=== PATIENT | female | born 1955 | race Caucasian/White ===

== ENCOUNTER 2022-11-14 15:17 | Outpatient (REF) | payer MEDICARE, OTHER, SELFPAY ==
[2022-11-14 16:06] LABS: SARS-CoV-2 Ag NEGATIVE (NEGATIVE)
[2022-11-15 11:42] LABS: SARS-CoV-2 NAA NOT DETECTED (NOT DETECTE)
== END 2022-11-14 15:18 | disposition home or self-care (01) ==
LOC: LAB 15:17
PROVIDERS: PCP Family Medicine; Visit Provider Internal Medicine
DX: Z20.822 Contact with and (suspected) exposure to COVID-19 (principal)
CPT/HCPCS: 87635; 87811; U0003

== ENCOUNTER 2023-04-30 10:36 | Outpatient (RCR) | payer MEDICARE, SELFPAY | END 2023-06-26 16:43 | disposition home or self-care (01) | LOC: PT 10:36 | PROVIDERS: PCP Family Medicine; Visit Provider Family Medicine | DX: R26.89 Other abnormalities of gait and mobility (principal); R26.81 Unsteadiness on feet | CPT/HCPCS: 97110; 97112; 97140; 97161; 97530 ==

== ENCOUNTER 2023-08-06 10:50 | Outpatient (OUT) | payer MEDICARE, SELFPAY ==
[2023-08-06 11:57] LABS: Basophils Percent Auto 0.7 % (0.2-2.0); Eosinophils Absolute Auto 0.1 10^3/uL (0.0-0.7); Eosinophils Percent Auto 1.8 % (0.9-7.0); Hematocrit 44.8 % (36.0-48.0); Hemoglobin 14.3 g/dL (12.0-16.0); Immature Granulocytes Abs Auto 0.01 10^3/uL (0.00-0.03); Immature Granulocytes Pct Auto 0.2 % (0.0-0.5); Lymphocytes Absolute Auto 1.6 10^3/uL (1.2-3.8); Lymphocytes Percent Auto 29.4 % (20.5-60.0); Mean Corpuscular HGB Conc 31.9 g/dL (29.9-35.2); Mean Corpuscular Hemoglobin 29.7 pg (26.7-34.0); Mean Corpuscular Volume 92.9 fL (81.0-99.0); Monocytes Absolute Auto 0.4 10^3/uL (0.3-0.8); Monocytes Percent Auto 7.4 % (1.7-12.0); Neutrophils Absolute Auto 3.3 10^3/uL (1.4-6.5); Neutrophils Percent Auto 60.5 % (43.0-75.0); Platelet Count 200 10^3/uL (150-450); Red Blood Count 4.82 10^6/uL (4.20-5.40); Red Cell Distribution Width 12.7 % (11.0-15.0); White Blood Count 5.4 10^3/uL (4.0-11.0)
[2023-08-06 14:00] LABS: BUN Creatinine Ratio 15.8; Calcium 9.2 mg/dL (8.5-10.1); Carbon Dioxide 28.5 mmol/L (21.0-32.0); Chloride 104 mmol/L (98-107); Estimated GFR (African America >60 (>=60); Estimated GFR (Non-African Ame 59 (>=60); Glucose 99 mg/dL (74-106); Magnesium 1.8 mg/dL (1.8-2.4); Potassium 4.5 mmol/L (3.5-5.1); Sodium 141 mmol/L (136-145); Thyroid Stimulating Hormone 5.713 uIU/mL (0.358-3.740)
== END 2023-08-06 10:51 | disposition home or self-care (01) ==
LOC: LAB 10:54
PROVIDERS: PCP Family Medicine; Visit Provider Family Medicine
DX: E03.9 Hypothyroidism, unspecified (principal); M79.10 Myalgia, unspecified site; R53.83 Other fatigue
CPT/HCPCS: 36415; 80048; 82728; 83735; 84443; 85025

== ENCOUNTER 2023-10-07 08:27 | Outpatient (OUT) | payer MEDICARE, SELFPAY ==
--- OUTSIDE RECORDS SUMMARY | 2023-10-07 08:40 | XMS_ITS | CCD ---
Author Organization [facility] Care Team Providers Care Mammography Technician Name Role Phone REQUEST, DR NONE LISTED Consulting Unavaila ble REQUEST, NONE LISTED Admitting Unavaila ble REQUEST, NONE LISTED Attending Unavaila ble REQUEST, NONE LISTED Consulting Unavaila ble REQUEST, NONE LISTED Admitting Unavaila ble REQUEST, DR TURPIN LISTED Attending Unavaila ble CASAS, DR JULIA Earl Primary Care Unavailable BALL, DR BOSWELL Attending Unavailable BALL, DR BOSWELL Consulting Unavailable BALL, DR BOSWELL Admitting Unavailable LUBNA, DR DEBORAH Jimenez Consulting Unavailable CASAS, DR JULIA Earl Attending Unavailable CASAS, DR JULIA Earl Consulting Unavailable CASAS, DR JULIA Earl Admitting Unavailable Casas, Julia Reddy ELISEO SANCHEZ Attending Unavailable Medications Current Medications Medication Drug Class(es) Dates Sig (Normalized) Sig (Original) azithromycin 250 mg oral tablet (1 source) Macrolide Antimicrobial Start: 4 Azithromycin 250 MG as directed Orally 2 tabs po today, then 1 tab daily x 4 more days for 5 Mar, Active methylPREDNISolone 4 mg oral tablet (1 source) Corticosteroid Start: 4 methylPREDNISolone 4 MG as directed Orally for 6 days Mar, Active Completed/Discontinued Medications Medication Drug Class(es) Dates Sig (Normalized) Sig (Original) doxycycline hyclate 100 mg oral capsule (1 source) Tetracycline-cla ss Drug Start: 04-30-2023 End: 08-06-2023 take 100 mg by mouth twice daily Doxycycline Hyclate Discontinued 100 MG PO Twice daily April 30, 2023 1:00am August 06, 2023 10:08am Problems Active Problems Problem Classification Problem Date Documented Date Episodic/Chronic Chronic obstructive pulmonary disease and bronchiectasis (1 source) Bronchitis, not specified as acute or chronic Episodic Genitourinary symptoms and ill-defined conditions (6 sources) Unspecified symptoms and signs involving the genitourinary system; Translations: [UNS SYMPTOMS SIGNS INVLV SYSTEM] Onset: 08-19-2020 Episodic Immunizations and screening for infectious disease (2 sources) Vaccination given; Translations: [Encounter for immunization] Episodic Malaise and fatigue (2 sources) Fatigue; Translations: [Other fatigue] 08-06-2023 Episodic Other connective tissue disease (1 source) Muscle pain; Translations: [Myalgia, unspecified site] 08-06-2023 Episodic Other connective tissue disease (1 source) Myalgia, unspecified site; Translations: [Myalgia and myositis, unspecified] 08-06-2023 Episodic Other injuries and conditions due to external causes (2 sources) Traumatic AND/OR non-traumatic injury; Translations: [Other injury of unspecified body region, initial encounter] Episodic Other nervous system disorders (1 source) Impairment of balance; Translations: [Other abnormalities of gait and mobility] Episodic Other nervous system disorders (1 source) Other abnormalities of gait and mobility Episodic Other nutritional; endocrine; and metabolic disorders (2 sources) Body mass index 40+ - severely obese; Translations: [Body mass index (BMI) 40.0-44.9, adult] Chronic Other nutritional; endocrine; and metabolic disorders (2 sources) Morbid obesity; Translations: [Morbid (severe) obesity due to excess calories] Onset: 06-12-2016 Chronic Superficial injury; contusion (6 sources) Contusion of right knee, initial encounter; Translations: [Contusion of right knee] Onset: 12-26-2020 Episodic Systemic lupus erythematosus and connective tissue disorders (2 sources) Autoimmune disease; Translations: [Autoimmune disease, not elsewhere classified] Onset: 03-05-2014 Chronic Thyroid disorders (6 sources) Hypothyroidism; Translations: [Hypothyroidism, unspecified] Onset: 03-05-2014 08-06-2023 Chronic Past or Other Problems Problem Classification Problem Date Documented Da te Episodic/Chronic Conditions associated with dizziness or vertigo (4 sources) Benign paroxysmal positional vertigo; Translations: [Benign paroxysmal positional vertigo] Onset: 02-15-2015 Episodic Other connective tissue disease (2 sources) Nontraumatic rupture of rotator cuff of left shoulder; Translations: [Unspecified rotator cuff tear or rupture of left shoulder, not specified as traumatic] Onset: 06-12-2016 Episodic Other non-traumatic joint disorders (2 sources) Shoulder joint pain; Translations: [Pain in left shoulder] Onset: 06-12-2016 Episodic Other upper respiratory infections (4 sources) Acute sinusitis; Translations: [Acute sinusitis, unspecified] Onset: 12-27-2014 Episodic Results Test Name Value Interpretation Reference Range Facil ity CULTURE URINEon 08-19-2020 CULTURE URINE Culture Observations: HEAVY GROWTH OF MIXED GENITAL DENISHA. NO POTENTIAL PATHOGENS SEEN. Normal [facility] Comment on above: Performed By: #### U RCX #### [facility] [address] [address] Hernesto Babb Vital Signs Date Time Vital Sign Value Performing Clinician Facility 08-06-2023 10:02-0400 Body height 165.1 cm [facility] 08-06-2023 10:02-0400 Body mass index (BMI) [Ratio] 42.7 kg/m2 [facility] 08-06-2023 10:02-0400 Body weight 116.57 kg [facility] 08-06-2023 10:02-0400 Diastolic blood pressure 81 mm[Hg] [facility] 08-06-2023 10:02-0400 Heart rate 70 /min [facility] 08-06-2023 10:02-0400 Systolic blood pressure 137 mm[Hg] [facility] 04-09-2023 10:45-0500 Body height 165.1 cm Julia Casas Other [facility] Other 04-09-2023 10:45-0500 Body mass index (BMI) [Ratio] 42.06 kg/m2 Julia Casas Other [facility] Other 04-09-2023 10:45-0500 Body weight 114.67 kg Julia Casas Other [facility] Other 04-09-2023 10:45-0500 Diastolic blood pressure 82 mm[Hg] Julia Casas Other [facility] Other 04-09-2023 10:45-0500 Systolic blood pressure 122 mm[Hg] Julia Casas Other [facility] Other 03-11-2023 11:30-0500 Body height 165.1 cm Julia Casas Other [facility] Other 03-11-2023 11:30-0500 Body mass index (BMI) [Ratio] 41.76 kg/m2 Julia Casas Other [facility] Other 03-11-2023 11:30-0500 Body temperature 96.3 [degF] Julia Casas Other [facility] Other 03-11-2023 11:30-0500 Body weight 113.85 kg Julia Casas Other [facility] Other 03-11-2023 11:30-0500 Diastolic blood pressure 72 mm[Hg] Julia Casas Other [facility] Other 03-11-2023 11:30-0500 Systolic blood pressure 105 mm[Hg] Julia Casas Other [facility] Other Encounters Encounter Date Encounter Type Care Provider Facility Start: 09-19-2023 End: 09-19-2023 ambulatory ELISEO SANCHEZ Not Available Start: 08-06-2023 End: 08-06-2023 ambulatory [facility] Work Phone: Start: 08-06-2023 End: 08-06-2023 Patient encounter procedure [facility] Work Phone: Start: 04-09-2023 End: 04-09-2023 ambulatory Julia Casas Other [facility] Other Start: 04-09-2023 Office outpatient visit 15 minutes Julia Casas [facility] Start: 03-11-2023 End: 01-08-2024 ambulatory Julia Casas Other [facility] Other Start: 03-11-2023 Office outpatient visit 15 minutes Julia Casas [facility] Start: 12-26-2020 End: 12-27-[address] JULIA CASAS Facility:[facility] Start: 08-19-2020 End: 08-19-[address] JULIA CASAS Facility:[facility] Start: 06-07-2020 End: 06-08-2020 ambulatory NONE LISTED REQUEST Facility:[facility] Start: 05-16-2020 End: 05-17-2020 ambulatory NONE LISTED REQUEST Facility: Procedures Date Procedure Procedure Detail Performing Clinician Start: 06-30-2015 General examination of patient Julia Augusto Other Start: 06-30-2015 Screening mammography Marilin beltranbacilio Casas Other Plan of Treatment Date Care Activity Detail Author [facility] Immunizations Immunization Date Immunization Notes Care Provider Fa cility 02-02-2021 COVID-19 Vaccine Pfi zer - Documentation Purposes Only Julia Casas Other [facility] 12-26-2020 influenza virus vaccine, split virus (incl. purified surface antigen) Julia Casas Other [facility] Other 12-26-2020 influenza virus vaccine, unspecified formulation [facility] 12-01-2019 influenza virus vaccine, split virus (incl. purified surface antigen) Julia Casas Other [facility] Other 12-01-2019 influenza virus vaccine, unspecified formulation [facility] Payers Date Payer Category Payer Private Health Insurance [id number] 1957 Self-pay 1957 Unknown [id number] 1955 Unknown [id number] 1955 Unknown [id number] 1955 Unknown [id number] [id number] [id number] Medicare [id number] 2.1 [id number] Unknown [id number] [id number] [id number] Unknown [id number] [id number] [id number] Unknown MMO [id number] Social History Date Type Detail Facility Sex Assigned At [facility] [employer] Other Start: 03-11-2023 Tobacco smoking stat us FLIS Never smoked tobacco (finding) [facility] Start: 1955 Sex Assigned At Female F [facility] Evaluation note 04-09-2023 Note Date & Type Note Facility 04-09-2023 Evaluation note Encounter Date Diagnosis Assessment Notes Apr, Balance disorder (ICD-10 - R26.89) Denies syncope. Denies vertigo. States she holds onto montoya at times. Discussed options - MRI, Neurology referral Will start w PT - gave order and paper for free screening first. [facility] Other Evaluation note 03-11-2023 Note Date & Type Note Facility 03-11-2023 Evaluation note Encounter Date Diagnosis Assessment Notes Mar, Bronchitis (ICD-10 - J40) Take antibiotic as directed. If develop wheezing, chest tightness, itching, bad cough, blue skin color, seizures, swelling of face, lips, tongue, or throat report to ED. [facility] [employer] Other Clinical Note 12-26-2020 Note Date & Type Note Facility 12-26-2020 Note PROCEDURE: XR KNEE R T 4V or > COMPARISON: None. HISTORY: Contusion of right knee FINDINGS: BONES:No acute fracture or dislocation. 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 No visible soft tissue swelling. EFFUSION:None visible. OTHER: Negative. IMPRESSION: No acute abnormality Electronically authenticated by: DEBORAH CALVO Date: 2020-12-26 17:22 [facility] Evaluation note 03-05-2014 Note Date & Type Note Facility 03-05-2014 Evaluation note Diagnosis Onset Date Fatigue acute Hypothyroidism, unspecified March 05, 2014 acute Myalgia acute [facility] Work Phone: History general Narrative - Reported Note Date & Type Note Facility History general Narrative - Reported Type Medical History Problem Title : comp liance with medical treatment, Problem Description : compliance with medical treatment, Problem Comment : Done, Problem Status : Active,, Medical History Problem Title : Depr ession Screening, Problem Description : Depression Screening, Problem Comment : Negative, Problem Status : Active,, Medical History Problem Title : Infl uenza, Problem Description : Influenza, Problem Comment : Influenza, Problem Status : Inactive,, Medical History Problem Title : no k nown problems, Problem Description : no known problems, Problem Comment : F, Problem Status : Active,, Medical History Problem Title : past medical history E&M, Problem Description : past medical history E&M, Problem Comment : hypothyroid, Problem Status : Active,, Medical History Problem Title : past medical history reviewed, Problem Description : past medical history reviewed, Problem Comment : reviewed - no changes required, Problem Status : Active,, Medical History Problem Title : PHQ2 Questionairre Score, Problem Description : PHQ2 Questionairre Score, Problem Comment : 0, Problem Status : Active,, Medical History Problem Title : PHQ9 Question One score, Problem Description : PHQ9 Question One score, Problem Comment : 0, Problem Status : Active,, Medical History Problem Title : PHQ9 Question Two score, Problem Description : PHQ9 Question Two score, Problem Comment : 0, Problem Status : Active,, Surgical History Problem Title : past surgical history reviewed, Problem Description : past surgical history reviewed, Problem Comment : reviewed - no changes required, Problem Status : Active, Surgical History Problem Title : surg ical procedures, hx of, Problem Description : surgical procedures, hx of, Problem Comment : 02/11 R knee arthroscopy , Problem Status : Active, [facility] Other Summary Purpose Family History No Family History Records Found Relationship Condition Age at Onset Recorded Date/T elmo father Unknown family member Unknown Not Specified Unknown Advance Directives No Advanced Directives Records Found Advance Directive Response Recorded Date/ Time Advance Directives No August 05 9:54am Chief Complaint and Reason for Visit Chief Complaint hand and feet crampi ng Reason for Visit Fatigue Hypothyroidism, unspecified Myalgia Additional Source Comments INFORMATION SOURCE (unrecogn ized section and content) DATE CREATED AUTHOR 01/01/2021 [facility] DATE CREATED AUTHOR AUTHOR'S ORGANIZ ATION 09/22/2023 [facility] EPIC REASON FOR VISIT (unrecogniz ed section and content) cough for 8 daysBalance Issu es Care Teams (unrecognized sec tion and content) Team Status: Active Member Role Status Dates Julia Casas MD Primary Care Provider Active Team Status: Inactive Member Role Status Dates Julia Casas MD Primary Care Provide r, Attending Provider Active Start: August 06, 2023 End: August 06, 2023 Goals (unrecognized section and content) Goals may be documented in a n alternate section FOR RECORDS PERTAINING TO PATIENTS WHO ARE OR HAVE BEEN ENROLLED IN A CHEMICAL DEPENDENCY/SUBSTANCEABUSE PROGRAM, SOME INFORMATION MAY BE OMITTED. This clinical summary was aggregated from multiple sources. Caution should be exercised in using it in the provision of clinical care. This summary normalizes information from multiple sources, and as a consequence, information in this document may materially change the coding, format and clinical context of patient data. In addition, data may be omitted in some cases. CLINICAL DECISIONS SHOULD BE BASED ON THE PRIMARY CLINICAL RECORDS. [employer] [facility] provides no warranty or guarantee of the accuracy or completeness of information in this document.
[2023-10-07 10:04] LABS: Free T4 1.26 ng/dL (0.76-1.46)
== END 2023-10-07 08:28 | disposition home or self-care (01) ==
PROVIDERS: PCP Family Medicine; Visit Provider Family Medicine
DX: E03.9 Hypothyroidism, unspecified (principal)
CPT/HCPCS: 36415; 84439; 84443

== ENCOUNTER 2023-12-06 11:37 | Outpatient (OUT) | payer MEDICARE, SELFPAY ==
--- OUTSIDE RECORDS SUMMARY | 2023-12-06 11:50 | XMS_ITS | CCD ---
Author Organization [facility] Care Team Providers Care [employer] Worker Name Role Phone REQUEST, NONE LISTED Consulting Unavaila ble REQUEST, DR TURPIN LISTED Admitting Unavaila ble REQUEST, NONE LISTED Attending Unavaila ble REQUEST, NONE LISTED Consulting Unavaila ble REQUEST, DR TURPIN LISTED Admitting Unavaila ble REQUEST, DR TURPIN LISTED Attending Unavaila ble CASAS, DR JULIA Earl Primary Care Unavailable NICK, DR BOSWELL Attending Unavailable BALL, DR BOSWELL Consulting Unavailable BALL, DR BOSWELL Admitting Unavailable WEST, DR DEBORAH Jimenez Consulting Unavailable CASAS, DR JULIA Earl Attending Unavailable CASAS, DR JULIA Earl Consulting Unavailable CASAS, DR JULIA Earl Admitting Unavailable Julia Casas Unavailable Julia Casas MD Primary Care Provider ELISEO SANCHEZ Attending Unavailable JOE DE LEON Attending Unavailable ELISEO SANCHEZ Referring Unavailable ELISEO SANCHEZ Attending Unavailable JOE DE LEON Attending Unavailable ELISEO SANCHEZ Referring Unavailable Medications Current Medications Medication Drug Class(es) Dates Sig (Normalized) Sig (Original) azithromycin 250 mg oral tablet (1 source) Macrolide Antimicrobial Start: 4 Azithromycin 250 MG as directed Orally 2 tabs po today, then 1 tab daily x 4 more days for 5 Mar, Active ketorolac tromethamine 4 mg/ml ophthalmic solution (2 sources) Nonsteroidal Anti-inflammatory Drug, Cyclooxygenase Inhibitor Start: 3 take 1 drop(s) into the eye(s) at bedtime ketorolac (Acular) 0.4 % ophthalmic solution Indications: Age-related nuclear cataract of both eyes INSTILL 1 DROP IN BOTH EYES IN MORNING AND BEFORE BEDTIME FOR 3 DAYS 5 mL 1 12/21/2022 Active levothyroxine sodium 0.075 mg oral tablet (2 sources) l-Thyroxine Start: 4 take 1 tablet by mouth once daily levothyroxine (Synthroid, Levoxyl) 75 MCG tablet Take 75 mcg by mouth Daily 09/05/2023 Active methylPREDNISolone 4 mg oral tablet (1 source) Corticosteroid Start: 4 methylPREDNISolone 4 MG as directed Orally for 6 days Mar, Active sodium fluoride 0.011 mg/mg toothpaste (2 sources) Start: 3 Sodium Fluoride 5000 PPM 1.1 % paste USE UP TO 3 TIMES DAILY TOOTHPASTE, EXPECTORATE AFTER 2 MINS, NO FOOD/DRINK FOR 60 MINS AFTER USE 08/14/2022 Active Completed/Discontinued Medications Medication Drug Class(es) Dates Sig (Normalized) Sig (Original) doxycycline hyclate 100 mg oral capsule (1 source) Tetracycline-cla ss Drug Start: 04-30-2023 End: 08-06-2023 take 100 mg by mouth twice daily Doxycycline Hyclate Discontinued 100 MG PO Twice daily April 30, 2023 1:00am August 06, 2023 10:08am Problems Active Problems Problem Classification Problem Date Documented Date Episodic/Chronic Cataract (2 sources) Bilateral age-related nuclear cataracts; Translations: [Age-related nuclear cataract, bilateral] Onset: 10-22-2022 10-22-2022 Chronic Chronic obstructive pulmonary disease and bronchiectasis (1 [...] abnormalities of gait and mobility Episodic Other nervous system disorders (1 source) Sensory disorder; Translations: [Unspecified disturbances of skin sensation] 12-03-2023 Episodic Other nutritional; endocrine; and metabolic disorders (2 sources) Body mass index 40+ - severely obese; Translations: [Body mass index (BMI) 40.0-44.9, adult] Chronic Other nutritional; endocrine; and metabolic disorders (2 sources) Morbid obesity; Translations: [Morbid (severe) obesity due to excess calories] Onset: 06-12-2016 Chronic Spondylosis; intervertebral disc disorders; other back problems (3 sources) Lumbar radiculopathy; Translations: [Radiculopathy, lumbar region] Onset: 11-07-2023 11-07-2023 Episodic Superficial injury; contusion (6 sources) Contusion of [...] Name Value Interpretation Reference Range Facil ity EMG 2 Extremitieson 12-03-19 [facility] - NervesOrdered By: Joe De Leon on 12-03-2023 [employer] Work Phone: CULTURE URINEon 08-19-2020 CULTURE URINE Culture Observations: HEAVY GROWTH OF MIXED GENITAL DENISHA. NO POTENTIAL PATHOGENS SEEN. Normal [facility] Comment on above: Performed By: #### U RCX #### [facility] [address] [address] Hernesto Babb Vital Signs Date Time Vital Sign Value Performing Clinician Facility 08-06-2023 10:02-0400 Body height 165.1 cm [facility] 08-06-2023 10:02-0400 Body mass index (BMI) [Ratio] 42.7 kg/m2 [facility] 08-06-2023 10:02-0400 Body weight 116.57 kg [facility] 08-06-2023 10:02-0400 Diastolic blood pressure 81 mm[Hg] [facility] 08-06-2023 10:02-0400 Heart rate 70 /min [facility] 08-06-2023 10:02-0400 Systolic blood pressure 137 mm[Hg] [facility] 04-09-2023 10:45-0500 Body height 165.1 cm Julia Casas Other [facility] [employer] Other 04-09-2023 10:45-0500 Body mass index (BMI) [Ratio] 42.06 kg/m2 Julia Casas Other [employer] Other 04-09-2023 10:45-0500 Body weight 114.67 kg Julia Casas Other [employer] Other 04-09-2023 10:45-0500 Diastolic blood pressure 82 mm[Hg] Julia Casas Other [employer] Other 04-09-2023 10:45-0500 Systolic blood pressure 122 mm[Hg] Julia Casas Other [employer] Other 03-11-2023 11:30-0500 Body height 165.1 cm Julia Casas Other [employer] Other 03-11-2023 11:30-0500 Body mass index (BMI) [Ratio] 41.76 kg/m2 Julia Casas Other [employer] Other 03-11-2023 11:30-0500 Body temperature 96.3 [degF] Julia Casas Other [employer] Other 03-11-2023 11:30-0500 Body weight 113.85 kg Julia Casas Other [employer] Other 03-11-2023 11:30-0500 Diastolic blood pressure 72 mm[Hg] Julia Casas Other [employer] Other 03-11-2023 11:30-0500 Systolic blood pressure 105 mm[Hg] Julia Casas Other [employer] Other Encounters Encounter Date Encounter Type Care Provider Facility Start: 12-03-2023 End: 12-03-2023 Bamboo flowsheet Joe De Leon MD Work Phone: [facility] [employer] [facility] Start: 12-03-2023 End: 12-03-2023 Bamboo flowsheet Joe De Leon MD Work Phone: [facility] [employer] [facility] Start: 12-03-2023 End: 12-03-2023 Patient encounter procedure [facility] De [facility] Comment on above: Neck pain; Sensory disturbance Start: 12-03-2023 End: 12-03-2023 ambulatory JOE DE LEON Not Available Start: 11-07-2023 End: 11-07-2023 ambulatory ELISEO SANCHEZ Not Available Start: 11-05-2023 End: 11-05-2023 ambulatory JOE DE LEON Not Available Start: 09-19-2023 End: 09-19-2023 ambulatory ELISEO SANCHEZ Not Available Start: 08-06-2023 End: 08-06-2023 ambulatory [facility] Work Phone: Start: 08-06-2023 End: 08-06-2023 Patient encounter procedure [facility] Physician [facility] Work Phone: Start: 04-09-2023 End: 04-09-2023 ambulatory Julia Casas Other [employer] Other Start: 04-09-2023 Office outpatient vi sit 15 minutes Julia Casas [facility] Start: 03-11-2023 End: 03-11-2023 ambulatory Julia Casas Other [employer] Other Start: 03-11-2023 Office outpatient vi sit 15 minutes Julia Casas [facility] Start: 12-26-2020 End: 12-27-[address] JULIA CASAS Facility:[facility] Start: 08-19-2020 End: 08-19-[address] JULIA CASAS Facility:[facility] Start: 06-07-2020 End: 06-08-2020 ambulatory NONE LISTED REQUEST Facility:[facility] Start: 05-16-2020 End: 05-17-2020 ambulatory NONE LISTED REQUEST Facility:[facility] Procedures Date Procedure Procedure Detail Performing Clinician Start: 12-03-2023 End: 12-03-2023 Needle emg ea extremty w/paraspinl area complete Joe De Leon MD Work Phone: Start: 06-30-2015 General examination of patient Julia Casas Other Start: 06-30-2015 Screening mammography Marilin Casas Other Plan of Treatment Date Care Activity Detail Author Start: 12-05-2023 End: 12-05-2023 Patient encounter procedure 12/05/2023 9:40 AM EDT Office Visit [facility] [address] [place] [id number] Eliseo Sanchez, SOCIAL AND HUMAN SERVICES ASSISTANT [address] [place] [address] [facility] [address] [facility] Start: 12-03-2023 End: 12-03-2023 Patient encounter procedure 12/03/2023 10:00 AM EDT Procedure Visit [facility] [place] [facility] [address] [place] [phone] Joe De Leon MD [address] [place] [address] Neck pain; Sensory disturbance [facility] [address] Comment on above: Neck pain; Sensory disturbance Start: 11-03-2023 Influenza vaccination Influenza Vacc ine (#1) [facility] Start: 2022 Pneumococcal Vaccine : 65+ Years (1 of 1 - PCV) Pneumococcal Vaccine: 65+ Years (1 of 1 - PCV) [facility] Start: 1997 Screening for malign ant neoplasm of breast Mammogram [facility] Start: 1955 Screening for malign ant neoplasm of colon [facility] Immunizations Immunization Date Immunization Notes Care Provider Fa cility 12-29-2021 influenza, injectabl e, quadrivalent, preservative free Joe De Leon MD Work Phone: [facility] 12-29-2021 influenza virus vaccine, unspecified formulation Joe De Leon MD Work Phone: [facility] 02-02-2021 COVID-19 Vaccine Pfi zer - Documentation Purposes Only Julia Casas Other [facility] 12-26-2020 influenza virus vaccine, split virus (incl. purified surface antigen) Julia Casas Other [employer] Other 12-26-2020 influenza virus vaccine, unspecified formulation [facility] 12-01-2019 influenza virus vaccine, split virus (incl. purified surface antigen) Julia Casas Other [facility] [employer] Other 12-01-2019 influenza virus vaccine, unspecified formulation [facility] Payers Date Payer Category Payer Medicare A[employer]NA MEDICARE A DVANTAGE AETNA MEDICARE REPLACEMENT [id number] 2023-Present [address] [place] [address] [id number] 2023 Private Health Insurance [id number] 1959 Self-pay 1959 Unknown [id number] 1957 Unknown [id number] 1957 Unknown [id number] [id number] 1957 Unknown [id number] 1259 1957 Unknown [id number] [id number]. 1259 1957 Unknown [id number] [id number]. 1259 1957 Unknown [id number]. 1259 Medicare [id number] Unknown [id number] 593 Unknown [id number] 593 Unknown MMO [id number] Social History Date Type Detail Facility Start: 09-19-2023 Sex Assigned At [facility] [employer] Other Start: 03-11-2023 Tobacco smoking status NHIS Never smoked tobacco (finding) [facility] Start: 1955 Sex Assigned At Female F [facility] Start: 09-15-2023 Tobacco smoking status NHIS Ex-smoker [facility] History of tobacco use Current smoker [facility] History of tobacco use Cigarette Smoker [facility] Start: 09-15-2023 Tobacco use and exposure Smokeless tobacco non-user [facility] Start: 09-19-2023 History of Social function [facility] Start: 1955 Sex assigned at Not on file [facility] History of Present illness Narrative 12-03-2023 Lucy Denney MA - 12/03/2023 10:00 AM EDT Note Date & Type Note Facility 12-03-2023 History of Presen t illness Narrative Images from the original note were not included. Reason for Appointment: EMG Patient: Diane Luna : 1955 EMG Computer: [employer] Referring Physician: Eliseo Sanchez CNP EMG: YANNICK metal furrer: Lucy Denney [facility] Office Location: [place] Reason for EMG: c/o intermittent numbness in the hands, does not radiate. R>L. All fingers effected. No hx of DM, not taking blood thinners. Comments: Procedure explained to the patient who expressed understanding. documented in this encounter [facility] Evaluation note 04-09-2023 Note Date & Type Note Facility 04-09-2023 Evaluation note Encounter Date Diagnosis Assessment Notes Apr, Balance disorder (ICD-10 - R26.89) Denies syncope. Denies vertigo. States she holds onto montoya at times. Discussed options - MRI, Neurology referral Will start w PT - gave order and paper for free screening first. [employer] Other Evaluation note 03-11-2023 Note Date & Type Note Facility 03-11-2023 Evaluation note Encounter Date Diagnosis Assessment Notes Mar, Bronchitis (ICD-10 - J40) Take antibiotic as directed. If develop wheezing, chest tightness, itching, bad cough, blue skin color, seizures, swelling of face, lips, tongue, or throat report to ED. [employer] Other Clinical Note 12-26-2020 Note Date & [...] authenticated by: DEBORAH CALVO Date: 2020-12-26 17:22 [facility] Evaluation note 03-05-2014 Note Date & Type Note Facility 03-05-2014 Evaluation note Diagnosis Onset Date Fatigue acute Hypothyroidism, unspecified March 05, 2014 acute Myalgia [facility] Work Phone: Evaluation note Note Date & Type Note Facility Evaluation note Diagnosis Neck pain Cervicalgia Sensory disturbance Disturbance of skin sensation documented in this encounter [facility] History general Narrative - Reported Note Date [...] knee arthroscopy , Problem Status : Active, [employer] Other Summary Purpose Family History No Family [...] and content) DATE CREATED AUTHOR 01/01/2021 [facility] [facility] DATE CREATED AUTHOR AUTHOR'S ORGANIZ ATION 12/04/2023 [facility] EPIC REASON FOR VISIT (unrecogniz ed section and content) cough for 8 daysBalance Issu es Care Teams (unrecognized sec tion and content) Team Status: Active Member Role Status Dates Julia Casas MD Primary Care Provider Active Team Status: Inactive Member Role Status Dates Julia Casas MD Primary Care Provide r, Attending Provider Active Start: August 06, 2023 End: August 06, 2023 [employer] Work[employer] Relationship Specialty Start Date End Date Julia Casas MD [address] [place] [address] PCP - General Family Medicine 11/05/23 [employer] Worker Relationship Specialty Start Date End Date Julia Casas MD [address] [place] [address] PCP - General Family Medicine 11/05/23 Goals (unrecognized section and content) Goals may [...] BE BASED ON THE PRIMARY CLINICAL RECORDS. [employer] [facility] provides no warranty or guarantee of the accuracy or completeness of information in this document.
[2023-12-06 12:25] LABS: Erythrocyte Sedimentation Rate 66 mm/hr (<=30)
[2023-12-06 12:46] LABS: C Reactive Protein 0.58 mg/dL (<=0.50); Creatine Kinase 43 U/L (26-192); Myoglobin 57 ng/mL (9-82)
[2023-12-09 15:09] LABS: Albumin 3.4 g/dL (2.9-4.4); Aldolase 3.7 U/L (3.3-10.3); Alpha-1-Globulin 0.3 g/dL (0.0-0.4); Alpha-2-Globulin 0.9 g/dL (0.4-1.0); Protein, Total 6.7 g/dL (6.0-8.5)
== END 2023-12-06 11:38 | disposition home or self-care (01) ==
LOC: LAB 11:39
PROVIDERS: PCP Family Medicine; Visit Provider Nurse Practitioner Adult Health
DX: R53.1 Weakness (principal); G62.9 Polyneuropathy, unspecified
CPT/HCPCS: 36415; 82085; 82550; 82746; 83874; 84155; 84165; 85652; 86140

== ENCOUNTER 2023-12-17 08:12 | Outpatient (RCR) | payer MEDICARE, SELFPAY | END 2024-01-13 09:58 | disposition home or self-care (01) | LOC: PT 08:12 | PROVIDERS: PCP Family Medicine; Visit Provider Nurse Practitioner Adult Health | DX: R53.1 Weakness (principal); M54.16 Radiculopathy, lumbar region; R26.89 Other abnormalities of gait and mobility | CPT/HCPCS: 97110; 97112; 97161 ==

== ENCOUNTER 2024-02-18 08:45 | Outpatient (OUT) | payer MEDICARE, SELFPAY ==
--- OUTSIDE RECORDS SUMMARY | 2024-02-18 09:07 | XMS_ITS | CCD ---
Author Organization [facility] Care Team Providers Care Cyanide Furnace Operator Name Role Phone REQUEST, NONE LISTED Consulting Unavaila ble REQUEST, NONE LISTED Admitting Unavaila ble REQUEST, NONE LISTED Attending Unavaila ble REQUEST, NONE LISTED Consulting Unavaila ble REQUEST, DR TURPIN LISTED Admitting Unavaila ble REQUEST, DR TURPIN LISTED Attending Unavaila ble MELTON, DR JULIA Earl Primary Care Unavailable NICK, DR BOSWELL Attending Unavailable BALL, DR BOSWELL Consulting Unavailable BALL, DR BOSWELL Admitting Unavailable WEST, DR DEBORAH Jimenez Consulting Unavailable MELTON, DR JULIA Earl Attending Unavailable MELTON, DR JULIA Earl Consulting Unavailable MELTON, DR JULIA Earl Admitting Unavailable Julia Melton Unavailable Julia Melton MD Primary Care Provider ELISEO SANCHEZ Referring Unavailable FRANCY FONG Primary Care Unavailable ELISEO SANCHEZ Referring Unavailable FRANCY FONG Primary Care Unavailable Joe De Leon MD Unavailable ELISEO SANCHEZ Attending Unavailable JOE DE LEON Attending Unavailable ELISEO SANCHEZ Referring Unavailable ELISEO SANCHEZ Attending Unavailable JOE DE LEON Attending Unavailable ELISEO SANCHEZ Referring Unavailable ELISEO SANCHEZ Attending Unavailable KAIA FALCON Attending Unavailable Medications Current Medications Medication Drug Class(es) Dates Sig (Normalized) Sig (Original) azithromycin 250 mg oral tablet (1 source) Macrolide Antimicrobial Start: 4 Azithromycin 250 MG as directed Orally 2 tabs po today, then 1 tab daily x 4 more days for 5 Mar, Active diazePAM 2 mg oral tablet (7 sources) Benzodiazepine Start: 4 diazePAM (Valium) 2 MG tablet Indications: Lumbar radiculopathy 1 tablet 30 minutes prior to MRI. Can repeat [address] 2 tablet 12/05/2023 Active ketorolac tromethamine 4 mg/ml ophthalmic solution (10 sources) Nonsteroidal Anti-inflammatory Drug, Cyclooxygenase Inhibitor Start: 3 take 1 drop(s) into the eye(s) at bedtime ketorolac (Acular) 0.4 % ophthalmic solution Indications: Age-related nuclear cataract of both eyes INSTILL 1 DROP IN BOTH EYES IN MORNING AND BEFORE BEDTIME FOR 3 DAYS 5 mL 1 12/21/2022 Active levothyroxine sodium 0.075 mg oral tablet (10 sources) l-Thyroxine Start: 4 take 1 tablet by mouth once daily levothyroxine (Synthroid, Levoxyl) 75 MCG tablet Take 75 mcg by mouth Daily 09/05/2023 Active meloxicam 7.5 mg oral tablet (7 sources) Nonsteroidal Anti-inflammatory Drug Start: 4 End: 5 take 1 tablet by mouth once daily meloxicam (Mobic) 7.5 MG tablet Indications: Lumbar radiculopathy Take 1 tablet (7.5 mg) by mouth Daily 30 tablet 2 12/05/2023 03/04/2024 Active methylPREDNISolone 4 mg oral tablet (1 source) Corticosteroid Start: 4 methylPREDNISolone 4 MG as directed Orally for 6 days Mar, Active sodium fluoride 0.011 mg/mg toothpaste (10 sources) Start: 3 Sodium Fluoride 5000 PPM 1.1 % paste USE UP TO 3 TIMES DAILY TOOTHPASTE, EXPECTORATE AFTER 2 MINS, NO FOOD/DRINK FOR 60 MINS AFTER USE 08/14/2022 Active tiZANidine 4 mg oral tablet (8 sources) Central alpha-2 Adrenergic Agonist Start: 4 End: 4 take 1 tablet by mouth at bedtime tiZANidine (Zanaflex) 4 MG tablet Indications: Lumbar radiculopathy TAKE 1/2 TO 1 TABLET BY MOUTH AT BEDTIME 90 tablet 1 12/30/2023 Active Completed/Discontinued Medications Medication Drug Class(es) Dates Sig (Normalized) Sig (Original) doxycycline hyclate 100 mg oral capsule (1 source) Tetracycline-cla ss Drug Start: 04-30-2023 End: 08-06-2023 take 100 mg by mouth twice daily Doxycycline Hyclate Discontinued 100 MG PO Twice daily April 30, 2023 1:00am August 06, 2023 10:08am Problems Active Problems Problem Classification Problem Date Documented Date Episodic/Chronic Cataract (10 sources) Bilateral age-related nuclear cataracts; Translations: [Age-related [...] [Encounter for immunization] Episodic Malaise and fatigue (5 sources) Fatigue; Translations: [Other fatigue] Onset: 01-13-2024 08-06-2023 Episodic Other connective tissue disease (1 source) Muscle pain; Translations: [Myalgia, unspecified site] 08-06-2023 Episodic Other connective tissue disease (1 source) Myalgia, unspecified site; Translations: [Myalgia and myositis, unspecified] 08-06-2023 Episodic Other injuries and conditions due to external causes (2 sources) Traumatic AND/OR non-traumatic injury; Translations: [Other injury of unspecified body region, initial encounter] Episodic Other nervous system disorders (4 sources) Neuropathy; Translations: [Polyneuropathy, unspecified] 12-05-2023 Chronic Other nervous system disorders (1 source) Polyneuropathy, unspecified; Translations: [Polyneuropathy, unspecified] Onset: 01-13-2024 Chronic Other nervous system disorders (2 sources) Polyneuropathy; Translations: [Polyneuropathy, unspecified] 02-10-2024 Chronic Other nervous system disorders (5 sources) Impairment of balance; Translations: [Other abnormalities of gait and mobility] 12-05-2023 Episodic Other nervous system disorders (1 source) Other abnormalities of gait and mobility Episodic Other nervous system disorders (3 sources) Sensory disorder; Translations: [Unspecified disturbances of skin sensation] 12-03-2023 Episodic Other nervous system disorders (2 sources) Hyperreflexia; Translations: [Abnormal reflex] 12-05-2023 Episodic Other nervous system disorders (1 source) Abnormal reflex; Translations: [Abnormal reflex] Onset: 01-13-2024 Episodic Other nutritional; endocrine; and metabolic disorders (2 sources) Body mass index 40+ - severely obese; Translations: [Body mass index (BMI) 40.0-44.9, adult] Chronic Other nutritional; endocrine; and metabolic disorders (2 sources) Morbid obesity; Translations: [Morbid (severe) obesity due to excess calories] Onset: 06-12-2016 Chronic Spondylosis; intervertebral disc disorders; other back problems (4 sources) Degeneration of cervical intervertebral disc; Translations: [Other cervical disc degeneration, unspecified cervical region] 02-10-2024 Chronic Spondylosis; intervertebral disc disorders; other back problems (16 sources) Lumbar radiculopathy; Translations: [Radiculopathy, lumbar region] [...] Results Test Name Value Interpretation Reference Range Facility MR LUMBAR SPINE WO CONTon MR LUMBAR SPINE WO CONT MR LUMBAR SPINE WO CONT MR LUMBAR SPINE WO CONT CLINICAL INFORMATION: Chronic back pain, weakness, falls, ataxia, neuropathy COMPARISON: None PROCEDURE: Routine lumbosacral spine protocol MRI was obtained without contrast material. Multisequence, multiplanar imaging was obtained. FINDINGS: Vertebral body heights and alignment are maintained. Minimal intervertebral disc space narrowing and mild degenerative endplate changes (Modic type II), not significantly disproportionate for age. No significant marrow signal abnormality. Conus medullaris terminates at the level of on L2. No distal cord signal abnormality. Cauda equina nerve roots are broadly unremarkable. L1-L2: No significant spinal canal or neural foraminal narrowing. L2-L3: Mild diffuse disc bulge, minimal facet arthropathy without significant spinal canal or neuroforaminal stenosis. L3-L4: Mild diffuse disc bulge without significant spinal canal or neuroforaminal stenosis. L4-L5: Mild diffuse disc bulge, left facet arthropathy without significant spinal canal stenosis. Minimal left neuroforaminal stenosis. L5-S1: Mild spinal canal stenosis from epidural fat. No significant neuroforaminal stenosis. IMPRESSION: * Minimal degenerative spondylosis, with left L4-L5 facet arthropathy. * No significant spinal canal or neuroforaminal stenosis. Approved by Resident Howard Ahmadi DO on 01/14/2024 8:59 AM IBryon have personally reviewed the image(s) and agree with and/or edited the report Finalized by Bryon Murguia on 01/14/2024 9:41 AM Normal [facility] MR CERVICAL SPINE WO CONTon 01-13-2024 MR CERVICAL SPINE WO CONT MR CERVICAL SPINE WO CONT EXAM: MRI CERVICAL SPINE WITHOUT CONTRAST CLINICAL HISTORY: TECHNIQUE: Routine unenhanced MRI of the cervical spine was obtained. COMPARISONS: None. FINDINGS: There is slight straightening of the normal lordotic curvature of the cervical spine. There is chronic very minimal degenerative retrolisthesis of C5 on C6. There is no significant loss of the vertebral body heights. There is localized moderate loss of the C4-5, C5-6, and C6-7 disc space height with localized mild degenerative endplate irregularity. There are no discrete worrisome bone marrow signal abnormalities. The craniocervical junction is within normal limits. There are no signal abnormalities of the visualized cervical spinal cord. Individual disc space levels: C2-C3: The disc is unremarkable. C3-C4: The disc is unremarkable. C4-C5: There is a disc bulge with focal moderately severe narrowing of the right neural foramen for the exiting C5 nerve root. C5-C6: There is a minimal disc bulge flattening thecal sac. There is mild narrowing of the right neural foramen. C6-C7: There is a minimal disc bulge flattening thecal sac. C7-T1: The disc is unremarkable. IMPRESSION: 1. Chronic degenerative disc disease from C4-C5 to C6-C7, as detailed above. There is focal moderately severe narrowing of the right C4-5 neural foramen for the exiting C5 nerve root. There is no evidence for spinal canal stenosis. Finalized by Osman Younger MD on 01/13/2024 12:24 PM Normal [facility] ALL SED RATEon 12-06-2023 Interpretation and review of laboratory results Abnormal [facility] SED RATE 66 High NINF [facility] are [facility] HealthOrthos e EMG 2 Extremitieson 12-03-19 24 [employer] Handscar e NVC 11-12 NervesOrdered By: Joe De Leon on 12-03-2023 [facility] Work Phone: CULTURE URINEon 08-19-2020 CULTURE URINE Culture Observations : HEAVY GROWTH OF MIXED GENITAL DENISHA. NO POTENTIAL PATHOGENS SEEN. Normal [facility] Comment on above: Performed By: #### U RCX #### [facility] [address] [place], [place] [address] Hernesto Babb Vital Signs Date Time Vital Sign Value Performing Clinician Facility 02-10-2024 11:16-0500 Body height 165.1 cm [employer] Work Phone: [facility] 02-10-2024 11:16-0500 Body mass index (BMI) [Ratio] 42.93 kg/m2 [employer] Work Phone: [facility] 02-10-2024 11:16-0500 Body weight 117.03 kg [employer] Work Phone: [facility] 02-10-2024 11:16-0500 Diastolic blood pressure 96 mm[Hg] [employer] Work Phone: [facility] 02-10-2024 11:16-0500 Systolic blood pressure 142 mm[Hg] Kaia Falcon PA Work Phone: [facility] 12-05-2023 09:37-0400 Body height 165.1 cm Eliseo Sanchez [employer] Work Phone: [facility] 12-05-2023 09:37-0400 Body mass index (BMI) [Ratio] 43.27 kg/m2 Eliseo Lovenagel [employer] Work Phone: [facility] 12-05-2023 09:37-0400 Body weight 117.94 kg Eliseo Lovenagel [employer] Work Phone: [facility] 12-05-2023 09:37-0400 Diastolic blood pressure 100 mm[Hg] Eliseo Ivannagel [employer] Work Phone: [facility] 12-05-2023 09:37-0400 Heart rate 74 /min Eliseo Horowitzgel [employer] Work Phone: [facility] 12-05-2023 09:37-0400 Systolic blood pressure 125 mm[Hg] Eliseo Ivannagel [employer] Work Phone: [facility] 08-06-2023 10:02-0400 Body height 165.1 cm [facility] 08-06-2023 10:02-0400 Body mass index (BMI) [Ratio] 42.7 kg/m2 [facility] 08-06-2023 10:02-0400 Body weight 116.57 kg [facility] 08-06-2023 10:02-0400 Diastolic blood pressure 81 mm[Hg] [facility] 08-06-2023 10:02-0400 Heart rate 70 /min [facility] 08-06-2023 10:02-0400 Systolic blood pressure 137 mm[Hg] [facility] 04-09-2023 10:45-0500 Body height 165.1 cm Julia Melton Other [employer] Other 04-09-2023 10:45-0500 Body mass index (BMI) [Ratio] 42.06 kg/m2 Julia Melton Other [employer] Other 04-09-2023 10:45-0500 Body weight 114.67 kg Julia Melton Other [employer] Other 04-09-2023 10:45-0500 Diastolic blood pressure 82 mm[Hg] Julia Melton Other [employer] Other 04-09-2023 10:45-0500 Systolic blood pressure 122 mm[Hg] Julia Melton Other [employer] Other 03-11-2023 11:30-0500 Body height 165.1 cm Julia Melton Other [employer] Other 03-11-2023 11:30-0500 Body mass index (BMI) [Ratio] 41.76 kg/m2 Julia Melton Other [employer] Other 03-11-2023 11:30-0500 Body temperature 96.3 [degF] Julia Melton Other [employer] Other 03-11-2023 11:30-0500 Body weight 113.85 kg Julia Melton Other [employer] Other 03-11-2023 11:30-0500 Diastolic blood pressure 72 mm[Hg] Julia Melton Other [employer] Other 03-11-2023 11:30-0500 Systolic blood pressure 105 mm[Hg] Julia Melton Other [employer] Other Encounters Encounter Date Encounter Type Care Provider Facility Start: 02-10-2024 End: 02-10-2024 Bamboo flowsheet Kaia Lowe PA Work Phone: [facility] Start: 02-10-2024 End: 02-10-2024 Bamboo flowsheet Kiaa Lowe PA Work Phone: [facility] Start: 02-10-2024 End: 02-10-2024 Office outpatient visit 25 minutes Kaia Lowe PA Work Phone: [facility] Comment on above: Degenerative disc di sease, cervical (Primary Dx); Neuropathy; Balance problems; Neck pain; Sensory disturbance; Polyneuropathy Start: 02-10-2024 End: 02-10-2024 ambulatory KAIA LOWE Not Available Start: 01-13-2024 End: 01-13-2024 ambulatory ELISEO C DUSTINGEL [facility] Start: 12-28-2023 End: 12-30-2023 Refill Eliseo C Windnagel [employer] Work Phone: [employer] [address] Comment on above: Lumbar radiculopathy Start: 12-06-2023 End: 12-06-2023 [facility] Result Encounter Eliseo C Windnagel [employer] Work Phone: [facility] External Department Unsolicited Start: 12-06-2023 End: 12-06-2023 [facility] Result Encounter Eliseo C Windnagel [employer] Work Phone: [facility] External Department Unsolicited Start: 12-05-2023 End: 12-05-2023 Bamboo flowsheet Eliseo C Windnagel [employer] Work Phone: [facility] [address] Start: 12-05-2023 End: 12-05-2023 Bamboo flowsheet Eliseo C Windnagel [employer] Work Phone: [facility] [address] Start: 12-05-2023 End: 12-05-2023 Office outpatient visit 25 minutes Eliseo C Windnagel [employer] Work Phone: [employer] [address] Comment on above: Weakness (Primary Dx ); Neuropathy; Hyperreflexia; Lumbar radiculopathy; Balance problems Start: 12-05-2023 End: 12-05-2023 ambulatory ELISEO C WINDNAGEL Not Available Start: 12-03-2023 End: 12-03-2023 Bamboo flowsheet Joe De Leon MD Work Phone: [facility] Start: 12-03-2023 End: 12-03-2023 Bamboo flowsheet Joe De Leon MD Work Phone: [facility] Start: 12-03-2023 End: 12-03-2023 Patient encounter procedure Joe De Leon MD Work Phone: [facility] Comment on above: Neck pain; Sensory disturbance Start: 12-03-2023 End: 12-03-2023 ambulatory JOE DE LEON Not Available Start: 11-07-2023 End: 11-07-2023 ambulatory ELISEO C WINDNAGEL Not Available Start: 11-05-2023 End: 11-05-2023 ambulatory JOE BENEDICT Not Available Start: 09-19-2023 End: 09-19-2023 ambulatory ELISEO C WINDNAGEL Not Available Start: 08-06-2023 End: 08-06-2023 ambulatory [facility] Work Phone: Start: 08-06-2023 End: 08-06-2023 Patient encounter procedure [facility] Work Phone: Start: 04-09-2023 End: 04-09-2023 ambulatory Julia Melton Other [employer] Other Start: 04-09-2023 Office outpatient vi sit 15 minutes Julia Melton [facility] Start: 03-11-2023 End: 03-11-2023 ambulatory Julia Melton Other [employer] Other Start: 03-11-2023 Office outpatient vi sit 15 minutes Julia Melton [facility] Start: 12-26-2020 End: 12-27-[address] JULIA MELTON Facility:[facility] Start: 08-19-2020 End: 08-19-[address] JULIA MELTON Facility: Start: 06-07-2020 End: 06-08-2020 ambulatory NONE LISTED REQUEST Facility: Start: 05-16-2020 End: 05-17-2020 ambulatory NONE LISTED REQUEST Facility: Procedures Date Procedure Procedure Detail Performing Clinician Start: 12-06-2023 ALL SED RATE Eliseo Sanchez [employer] Work Phone: Start: 12-03-2023 End: 12-03-2023 Needle emg ea extremty w/paraspinl area complete Joe De Leon MD Work Phone: Start: 06-30-2015 General examination of patient Julia Augusto Other Start: 06-30-2015 Screening mammography M brenda Melton Other Plan of Treatment Date Care Activity Detail Author Start: 05-20-2024 End: 05-20-2024 Patient encounter procedure 05/20/2024 2:00 PM EDT Office Visit [facility] [place] [facility] [address] [place] [id number] Kaia Falcon PA [address] [place] [id number] [facility] Start: 02-11-2024 End: 02-09-2025 Rheumatoid factor [Units/volume] in Serum or Plasma Rheumatoid factor Lab Routine Neuropathy Neck pain Sensory disturbance Expected: 02/11/2024 (Approximate), Expires: 02/09/2025 [facility] Comment on above: Expected: 02/11/2024 (Approximate), Expires: 02/09/2025 Start: 02-10-2024 End: 02-09-2025 Erythrocyte sedimentation rate Sedimentation rate, automated Lab Routine Neuropathy Neck pain Sensory disturbance Expected: 02/10/2024 (Approximate), Expires: 02/09/2025 [facility] Work Phone: Comment on above: Expected: 02/10/2024 (Approximate), Expires: 02/09/2025 Start: 02-10-2024 End: 02-09-2025 Nuclear Ab [Titer] in Serum by Immunofluorescence [place] Lab Routine Neuropathy Neck pain Sensory disturbance Expected: 02/10/2024 (Approximate), Expires: 02/09/2025 [facility] Comment on above: Expected: 02/10/2024 (Approximate), Expires: 02/09/2025 Start: 02-10-2024 End: 02-09-2025 Protein electrophoresis, serum Protein electrophoresis, serum Lab Routine Neuropathy Neck pain Sensory disturbance Expected: 02/10/2024 (Approximate), Expires: 02/09/2025 [facility] Comment on above: Expected: 02/10/2024 (Approximate), Expires: 02/09/2025 Start: 02-10-2024 End: 02-10-2024 Patient encounter procedure 02/10/2024 11:20 AM EST Office Visit [facility] [address] [address] [place] [phone] Kaia Falcon PA [address] [place] [address] Arrived [facility] Comment on above: Arrived Start: 01-20-2024 End: 01-20-2024 Patient encounter procedure 01/20/2024 2:20 PM EST Office Visit [facility] [address] [place] [phone] Francy Fong PA [address] [place] [address] [facility] Start: 12-30-2023 End: 12-30-2023 Patient encounter procedure 12/30/2023 2:20 PM EDT Office Visit [facility] [place] [address] [place] [address] Eliseo Sanchez NP [address] [place] [address] [facility] [place] [facility] Start: 12-05-2023 End: 12-04-2024 Aldolase Aldolase Lab Routine Weakness Expected: 12/05/2023 (Approximate), Expires: 12/04/2024 [facility] Work Phone: Comment on above: Expected: 12/05/2023 (Approximate), Expires: 12/04/2024 Start: 12-05-2023 End: 12-04-2024 C reactive protein [Mass/volume] in Serum or Plasma C-reactive protein Lab Routine Neuropathy Expected: 12/05/2023 (Approximate), Expires: 12/04/2024 [facility] Comment on above: Expected: 12/05/2023 (Approximate), Expires: 12/04/2024 Start: 12-05-2023 End: 12-04-2024 Creatine kinase [Enzymatic activity/volume] in Serum or Plasma CK Lab Routine Neuropathy Expected: 12/05/2023 (Approximate), Expires: 12/04/2024 [facility] Comment on above: Expected: 12/05/2023 (Approximate), Expires: 12/04/2024 Start: 12-05-2023 End: 12-04-2024 Erythrocyte sedimentation rate Sedimentation rate, automated Lab Routine Neuropathy Expected: 12/05/2023 (Approximate), Expires: 12/04/2024 [facility] Comment on above: Expected: 12/05/2023 (Approximate), Expires: 12/04/2024 Start: 12-05-2023 End: 12-04-2024 Folate [Mass/volume] in Serum or Plasma Folate Lab Routine Neuropathy Expected: 12/05/2023 (Approximate), Expires: 12/04/2024 [facility] Comment on above: Expected: 12/05/2023 (Approximate), Expires: 12/04/2024 Start: 12-05-2023 End: 12-04-2024 MR Cervical spine WO contrast MR cervical spine wo contrast Imaging Routine Weakness Neuropathy Hyperreflexia Expected: 12/05/2023 (Approximate), Expires: 12/04/2024 [facility] Comment on above: Expected: 12/05/2023 (Approximate), Expires: 12/04/2024 Start: 12-05-2023 End: 12-04-2024 MR Lumbar spine WO contrast MR lumbar spine wo contrast Imaging Routine Weakness Neuropathy Expected: 12/05/2023 (Approximate), Expires: 12/04/2024 [facility] Comment on above: Expected: 12/05/2023 (Approximate), Expires: 12/04/2024 Start: 12-05-2023 End: 12-04-2024 Myoglobin, serum Myoglobin, serum Lab Routine Weakness Expected: 12/05/2023 (Approximate), Expires: 12/04/2024 [facility] Comment on above: Expected: 12/05/2023 (Approximate), Expires: 12/04/2024 Start: 12-05-2023 End: 12-04-2024 Protein electrophoresis, serum Protein electrophoresis, serum Lab Routine Neuropathy Expected: 12/05/2023 (Approximate), Expires: 12/04/2024 [facility] Comment on above: Expected: 12/05/2023 (Approximate), Expires: 12/04/2024 Start: 12-05-2023 End: 12-05-2023 Patient encounter procedure [facility] [address] Comment on above: Arrived Start: 12-03-2023 End: 12-03-2023 Patient encounter procedure 12/03/2023 10:00 AM EDT Procedure Visit [facility] [place] [address] [place] [id number] Joe De Leon MD [address] [place], [place] [id number] Neck pain; Sensory disturbance [facility] [address] Comment on above: Neck pain; Sensory disturbance Start: 11-03-2023 Influenza vaccination Influenza Vacc ine (#1) [facility] Start: 2022 Pneumococcal Vaccine : 65+ Years (1 of 1 - PCV) Pneumococcal Vaccine: 65+ Years (1 of 1 - PCV) [facility] Start: 1997 Screening for malign ant neoplasm of breast Mammogram [facility] Start: 1957 Screening for malign ant neoplasm of colon [facility] C reactive protein [Mass/volume] in Serum or Plasma C-reactive protein Lab Routine Neuropathy Neck pain Sensory disturbance Ordered: 02/10/2024 [facility] Comment on above: Ordered: 02/10/2024 [facility] Immunizations Immunization Date Immunization Notes Care Provider Fa cility 12-29-2021 influenza, injectabl e, quadrivalent, preservative free Joe De Leon MD Work Phone: [facility] 12-29-2021 influenza virus vaccine, unspecified formulation Joe De Leon MD Work Phone: [facility] 02-02-2021 COVID-19 Vaccine Pfi zer - Documentation Purposes Only Julia Melton Other [facility] 12-26-2020 influenza virus vaccine, split virus (incl. purified surface antigen) Julia Melton Other [facility] [employer] Other 12-26-2020 influenza virus vaccine, unspecified formulation [facility] 12-01-2019 influenza virus vaccine, split virus (incl. purified surface antigen) Julia Melton Other [facility] [employer] Other 12-01-2019 influenza virus vaccine, unspecified formulation [facility] Payers Date Payer Category Payer Medicaid [employer] MEDICARE A DVANTAGE [id number] 2023 Medicare A[employer]NA MEDICARE A DVANTAGE A[employer]NA MEDICARE REPLACEMENT [id number] 2023-Present [address] [place] [address] [id number] 2023 Private Health Insurance [id number] 1959 Self-pay 1959 Unknown [id number] 1957 Unknown [id number] 1957 Unknown [id number] 1957 Unknown [id number] 1957 Unknown [id number]. 1286 1955 Unknown [id number] 2.16.840.1.518463.3.579.2. 1259 1955 Unknown [id number] 2.16.840.1.933579.3.579.2. 1259 1955 Unknown [id number] 2.16.840.1.862220.3.579.2. 1259 1955 Unknown [id number] 2.16.840.1.585524.3.579.2. 1259 1955 Unknown [id number] 2.16.840.1.209406.3.579.2. 1259 1955 Unknown [id number] 2.16.840.1.425898.3.579.2. 1259 Medicare [id number] [id number] Unknown [id number] 2.16.840.1.451802.3.579.2. 593 Unknown [id number] 2.16.840.1.210283.3.579.2. 593 Unknown MMO [id number] Social History Date Type Detail Facility Start: 09-19-2023 End: 02-10-2024 Sex Assigned At [facility] Other Start: 03-11-2023 Tobacco smoking status SCIS Never smoked tobacco (finding) [facility] Start: 1955 Sex Assigned At Female F [facility] Start: 09-15-2023 Tobacco smoking status [facility] Ex-smoker [facility] History of tobacco use Current smoker [facility] History of tobacco use Cigarette Smoker [facility] Start: 09-15-2023 Tobacco use and exposure Smokeless tobacco non-user [facility] Start: 09-19-2023 End: 02-10-2024 History of Social function [facility] Start: 1955 Sex assigned at Not on file [facility] Clinical Notes 03-05-2014 to 02-10-2024 SILVA Lenz - 02/10/2024 11:20 AM Maddison Denney MA - 12/03/2023 10:00 AM EDT Note Date & Type Note Facility 02-10-2024 History of Presen t illness Narrative Images from the original note were not included. Yady Luna is a 68 y.o. year old female Chief Complaint Patient presents with Gait Problem Neck Pain Past Medical History: Diagnosis Date Cervicalgia 06/09/2012 Disturbance of skin sensation 02/22/2012 Gout Headache 02/22/2012 Late effect of adverse effect of drug, medicinal or biological substance 02/22/2012 Lumbosacral radiculopathy 03/05/2012 Pain in limb 02/22/2012 Peripheral neuropathy 02/22/2012 Variants of migraine (CMS/HCC) 02/22/2012 Past Surgical History: Procedure Laterality Date CATARACT EXTRACTION W/ INTRAOCULAR LENS IMPLANT 11/2022 KNEE SURGERY With two tears Family History Problem Relation Name Age of Onset Cataracts Mother Heart disease Mother Cancer Mother Alcohol abuse Father Thyroid disease Other Diabetes Other Heart disease Other Social History Tobacco Use Smoking status: Former Types: Cigarettes Smokeless tobacco: Never Substance Use Topics Alcohol use: Not on file Medication Documentation Review Audit Reviewed by Rufina Sanz MA (Chemical Dependency Therapist) on 02/10/24 at 1117 Medication Order Taking? Sig Documenting Provider Last Dose Status diazePAM (Valium) 2 MG tablet [id number] 1 tablet 30 minutes prior to MRI. Can repeat [address] Patient not taking: Reported on 02/10/2024 Eliseo Sanchez, GOGO Active ketorolac (Acular) 0.4 % ophthalmic solution [id number] No INSTILL 1 DROP IN BOTH EYES IN MORNING AND BEFORE BEDTIME FOR 3 DAYS Patient not taking: Reported on 12/05/2023 Brayan Olvera, DO Not Taking Active levothyroxine (Synthroid, Levoxyl) 75 MCG tablet [id number] No Take 75 mcg by mouth Daily Eliseo Sanchez NP Taking Active meloxicam (Mobic) 7.5 MG tablet [id number] Take 1 tablet (7.5 mg) by mouth Daily Eliseo Sanchez NP Active Sodium Fluoride 5000 PPM 1.1 % paste [id number] No USE UP TO 3 TIMES DAILY TOOTHPASTE, EXPECTORATE AFTER 2 MINS, NO FOOD/DRINK FOR 60 MINS AFTER USE Historical Provider, Taking Active tiZANidine (Zanaflex) 4 MG tablet [id number] TAKE 1/2 TO 1 TABLET BY MOUTH AT BEDTIME Eliseo Sanchez NP Active HPI GAIT INSTABILITY -MRI and Labs completed for review -patient states her balance is getting better -she denies any recent falls -she has finished PT and this helped some -she completed this around 3 weeks ago -she denies any dizziness -she admits some paresthesias in her feet -this is not as bad -she denies any weakness -legs cohen get fatigued and achy if she is on her feet for long periods -She admits low back pain -this comes and goes -worse with activity -The back pain goes down into her hips and legs NECK PAIN -Admits tightness -The pain does not radiate into her arms -she states her neck no longer cracks and pops -She denies any recent numbness or tingling in her hands -she has some weakness in her arms -she is no longer taking Zanaflex due to SE -She states she had some blood in her stool and once she stopped the medication the blood stopped -she did not start Mobic due to possible SE -she is wondering about PT for her symptoms ROS Review of Systems Constitutional: Negative for fever. HENT: Negative for congestion. Eyes: Negative for visual disturbance. Respiratory: Negative for cough and shortness of breath. Cardiovascular: Negative for chest pain. Gastrointestinal: Negative for nausea and vomiting. Genitourinary: Negative for dysuria. Musculoskeletal: Positive for back pain and neck pain. Skin: Negative for rash. Neurological: Positive for weakness and numbness. Negative for dizziness, tremors, speech difficulty and headaches. Psychiatric/Behavioral: Negative for sleep disturbance. Objective Visit Vitals BP (!) 142/96 Ht 5' 5 Wt 258 lb BMI 42.93 kg/m Smoking Status Former BSA 2.32 m GENERAL Apical RRR, no murmur Neurological Exam Mental Status Awake, alert and oriented to person, place and time. Speech is normal. Language is fluent with no aphasia. Attention and concentration are normal. Fund of knowledge is appropriate for level of education. Cranial Nerves CN III, IV, : Extraocular movements intact bilaterally. Normal lids and orbits bilaterally. Pupils equal round and reactive to light bilaterally. CN V: Facial sensation is normal. CN VII: Full and symmetric facial movement. CN VIII: Hearing is normal. CN IX, X: Palate elevates symmetrically. Normal gag reflex. CN XI: Shoulder shrug strength is normal. CN XII: Tongue midline without atrophy or fasciculations. Sensory Light touch is normal in upper and lower extremities. Temperature is normal in upper and lower extremities. Vibration abnormality: Decreased at the knee, ankle and great toe bilaterally. Proprioception is absent. Coordination Right: [id number] normal. Rapid alternating movement normal.Left: [id number] normal. Rapid alternating movement normal. Gait Casual gait is normal including stance, stride, and arm swing. Motor Examination RUE Strength deltoid, biceps, triceps, wrist extensors, wrist extensors, wrist flexor, funeral sales manager strength 5/5. LUE Strength deltoid, biceps, triceps, wrist extensors, wrist extensors, wrist flexor, funeral sales manager strength 5/5. RLE Strength illopsoas, quadriceps-5/5, tibialis anterior, and gastrocnemius strength 5/5. LLE Strength illopsoas, quadriceps -5/5, tibialis anterior, and gastrocnemius strength 5/5. Tone Normal tone x4 extremities. Reflexes: RUE biceps reflex 3, brachioradialis reflex 3 LUE biceps reflex 3, brachioradialis reflex 3 RLE knee reflex 3, LLE knee reflex 3, Assessment and Plan 1. Lumbar radiculopathy - Patient presented with gait instability. Medical history includes gout, degenerative lumbar spine disease, lumbar radiculopathy, peripheral neuropathy. Balance issues started several years ago and has worsened since February 2023. She had an EMG in 2012 for similar symptoms that showed a radiculopathy. She has significant sensory loss in her lower extremities suggesting a peripheral process such as polyneuropathy and/or worsening radiculopathy and repeat EMG showed bilateral S1 radiculopathy. She still may have a component of neuropathy. MRI lumbar spine 01/13/24 revealed minimal degenerative spondylosis with left L4-5 facet arthropathy. PT did help her symptoms somewhat. 2. Paresthesias/Weakness - She reports paresthesias and weakness in her arms as well her legs. Her weakness is more proximal. EMG bilateral upper extremities on 12/03/2023 was normal. EMG BLE on 11/23/23 showed bilateral S1 radiculopathy. She does not have muscle fatigability with repetitive testing and she denies diplopia, dysphagia and ptosis that would raise concern for myasthenia. She does have hyperreflexia on exam and with weakness there is a concern for cervical cord stenosis. Labwork 12/06/23 revealed ESR 65, CRP 0.58, and M spike. MRI C spine 01/03/24 revealed chronic degenerative disc disease from C4-5 to C6-7 with a focal moderately severe narrowing of the right C4-5 neural foramen. There is no evidence for spinal canal stenosis. She denies radicular pain or paresthesia down her right arm. She does have some neck stiffness/muscle tightness. Diagnoses and all orders for this visit: Degenerative disc disease, cervical Neuropathy Balance problems Neck pain Sensory disturbance PLAN: Labwork reviewed with the patient. We will repeat CRP,ESR, SPEP and add [place] and RF to consider rheumatology referral. MRI of the cervical and lumbar spine reviewed with the patient. We will order PT for neck pain and degenerative spine disease. Hold on muscle biopsy for now as her muscle labs were unremarkable. I counseled the patient on fall precautions. I discussed the high risk of trauma and debility associated with falls. Patient verbalized understanding. Follow up in 6-8 weeks documented in this encounter [facility] 12-03-2023 History of Presen t illness Narrative Images from the original note were not included. Reason for Appointment: EMG Patient: Diane Luna : 1955 EMG Computer: [employer] Referring Physician: Eliseo Sanchez CNP EMG: YANNICK ict customer support officer: Lucy Denney CMA Office Location: [place] Reason for EMG: c/o intermittent numbness in the hands, does not radiate. R>L. All fingers effected. No hx of DM, not taking blood thinners. Comments: Procedure explained to the patient who expressed understanding. documented in this encounter [facility] 04-09-2023 Evaluation note Encounter Date Diagnosis Assessment Notes Apr, Balance disorder (ICD-10 - R26.89) Denies syncope. Denies vertigo. States she holds onto montoya at times. Discussed options - MRI, Neurology referral Will start w PT - gave order and paper for free screening first. [employer] Other 01-08-2024 Evaluation note* Encounter Date Diagnosis Assessment Notes Treatment Notes Treatment Clinical Notes Mar, Bronchitis (ICD-10 - J40) Take antibiotic as directed. If develop wheezing, chest tightness, itching, bad cough, blue skin color, seizures, swelling of face, lips, tongue, or throat report to ED. [employer] Other 10-25-2021 NotePROCEDURE: XR KNEE RT 4V or > COMPARISON: None. HISTORY: Contusion of right knee FINDINGS: BONES:No acute fracture or dislocation. 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 No visible soft tissue swelling. EFFUSION:None visible. OTHER: Negative. IMPRESSION: No acute abnormality Electronically authenticated by: DEBORAH CALVO Date: 2020-12-26 17:22[facility]01-02-2015 Evaluation note* Diagnosis Onset Date Resolution Status Fatigue acute Hypothyroidism, unspecified March 05, 2014 acute Myalgia acute [facility] Work Phone: Evaluation note* Diagnosis Neck pain Cervicalgia Sensory disturbance Disturbance of skin sensation documented in this encounter [facility]* Diagnosis Weakness- Primary Other malaise and fatigue Neuropathy Mononeuritis of unspecified site Hyperreflexia Abnormal reflex Lumbar radiculopathy Thoracic or lumbosacral neuritis or radiculitis, unspecified Balance problems Abnormality of gait [facility] Diagnosis Lumbar radiculopathy Thoracic or lumbosacral neuritis or radiculitis, unspecified [facility] Diagnosis Degenerative disc disease, cervical- Primary Neuropathy Mononeuritis of unspecified site Balance problems Abnormality of gait Neck pain Cervicalgia Sensory disturbance Disturbance of skin sensation Polyneuropathy Unspecified hereditary and idiopathic peripheral neuropathy [facility] N[facility]ative - Reported* Type Description Date Medical History Problem Title : comp liance [...] knee arthroscopy , Problem Status : Active, [employer] Other Summary Purpose Family History No Family [...] Reason for Visit Fatigue Hypothyroidism, unspecified Myalgia Reason for Referral Specialty Diagnoses / Procedures Referred By Sabasac t Referred To Contact Physical Therapy Diagnoses Weakness Lumbar radiculopathy Balance problems Procedures OK OFFICE/OUTPATIENT NEW HIGH MDM 60 MINUTES Eliseo Sanchez [employer] [address] [place] [address] [facility] Schedule Referral ID Status Reason Start Date Expiration Date Visits Requested Visits Authorized [id number] Pending Review Specialty Services Required 12/05/2023 06/02/2024 1 1 Specialty Diagnoses / Procedures Referred By Edvin t Referred To Contact Diagnoses Lumbar radiculopathy Eliseo Sanchez [employer] [address] [place] [address] Referral ID Status Reason Start Date Expiration Date V isits Requested Visits Authorized [id number] Pending Review 12/05/2023 06/02/2024 1 1 Specialty Diagnoses / Procedures Referred By Sabasac t Referred To Contact Radiology Diagnoses Weakness Neuropathy Procedures MR lumbar spine wo contrast Eliseo Sanchez [employer] [address] [place] [address] [facility] Referral ID Status Reason Start Date Expiration Date Visits Re quested Visits Authorized [id number] Closed 12/05/2023 06/02/2024 1 1 Specialty Diagnoses / Procedures Referred By Contac t Referred To Contact Radiology Diagnoses Weakness Neuropathy Hyperreflexia Procedures MR cervical spine wo contrast Eliseo Sanchez, [employer] [address] [place] [address] [facility] Referral ID Status Reason Start Date Expiration Date Visits Re quested Visits Authorized [id number] Closed 12/05/2023 06/02/2024 1 1 Additional Source Comments INFORMATION SOURCE (unrecogn ized section and content) DATE CREATED AUTHOR 01/01/2021 [facility] DATE CREATED AUTHOR AUTHOR'S ORGANIZ ATION 01/14/2024 [facility] DATE CREATED AUTHOR AUTHOR'S ORGANIZ ATION 02/13/2024 [facility] EPIC REASON FOR VISIT (unrecogniz ed section and content) Reason Comments Med Change Request Reason Comments Gait Problem Neck Pain Care Teams (unrecognized sec tion and content) Team Status: Active Member Role Status Dates Julia Melton MD Primary Care Provider Active Team Status: Inactive Member Role Status Dates Julia Melton MD Primary Care Provide r, Attending Provider Active Start: August 06, 2023 End: August 06, 2023 [employer] Relationship Specialty Start Date End Date Julia Melton MD [address] [place] [phone] PCP - General Family Medicine 11/05/23 [employer] Operator Relationship Specialty Start Date End Date Julia Melton MD [address] [place] [phone] PCP - General Family Medicine 11/05/23 [employer] Furn[employer] Operator Relationship Specialty Start Date End Date Julia Melton MD [address] [place] [phone] PCP - General Family Medicine 11/05/23 [employer] Furn[employer] Operator Relationship Specialty Start Date End Date Julia Melton MD [address] [place] [phone] PCP - General Family Medicine 11/05/23 [employer] Furnace Operator Relationship Specialty Start Date End Date Julia Melton MD [address] [place] [phone] PCP - General Family Medicine 11/05/23 [employer] Furn[employer] Operator Relationship Specialty Start Date End Date Julia Melton MD [address] [place] [address] PCP - General Family Medicine 11/05/23 [employer] Operator Relationship Specialty Start Date End Date Julia Melton MD [address] [place] [address] PCP - General Family Medicine 11/05/23 Joe De Leon MD [address] [place] [address] Referring Physician Neurology 02/10/24 [employer] Operator Relationship Specialty Start Date End Date Julia Melton MD [address] [place] [phone] PCP - General Family Medicine 11/05/23 Joe De Leon MD [address] [place] [address] Referring Physician Neurology 02/10/24 Goals (unrecognized section and content) Goals may [...] BE BASED ON THE PRIMARY CLINICAL RECORDS. [employer] [facility]. provides no warranty or guarantee of the accuracy or completeness of information in this document.
[2024-02-18 09:50] LABS: Erythrocyte Sedimentation Rate 58 mm/hr (<=30)
[2024-02-18 10:05] LABS: C Reactive Protein 0.88 mg/dL (<=0.50)
[2024-02-19 13:07] LABS: Rheumatoid Factor (RF) <10.0 IU/mL (<14.0)
[2024-02-19 14:08] LABS: Albumin 3.3 g/dL (2.9-4.4); Alpha-1-Globulin 0.3 g/dL (0.0-0.4); Alpha-2-Globulin 0.9 g/dL (0.4-1.0); Gamma Globulin 1.2 g/dL (0.4-1.8); Protein, Total 6.8 g/dL (6.0-8.5)
[2024-02-20 14:10] LABS: Antinuclear Antibodies, IFA Negative (.)
== END 2024-02-18 08:46 | disposition home or self-care (01) ==
LOC: LAB 08:47
PROVIDERS: PCP Family Medicine; Visit Provider Physician Assistant Medical
DX: G62.9 Polyneuropathy, unspecified (principal); M54.2 Cervicalgia; R20.9 Unspecified disturbances of skin sensation
CPT/HCPCS: 36415; 84155; 84165; 85652; 86038; 86140; 86431

== ENCOUNTER 2024-08-04 10:05 | Outpatient (OUT) | payer MEDICARE, SELFPAY ==
--- OUTSIDE RECORDS SUMMARY | 2024-08-04 05:59 | XMS_ITS | Continuity of Care Document ---
Author Organization [facility] Address [address] [place] [address] Phone Care Team Providers Care Senior Windows Systems Administrator Name Role Phone Julia Casas MD Primary Care Provider Jessika Perry MD Attending Provider [phone] Aurora Falcon PA-C Referring Provider Care Teams Patient Care Team Team Status: Active Member Role Status Dates Julia Casas MD Primary Care Provider Active Visit Care Team Team Status: Inactive Member Role Status Dates Julia Casas MD Primary Care Provider Active Start: July 02, 2024 End: July 02, 2024 Jessika Perry MD Attending Provider Active Start: July 02, 2024 End: July 02, 2024 Aurora Falcon PA-C Referring Provider Active Sta rt: July 02, 2024 End: July 02, 2024 Visit Care Team Team Status: Inactive Member Role Status Dates Julia Casas MD Primary Care Provider Active Start: July 23, 2024 End: July 23, 2024 Jessika Perry MD Attending Provider Active Start: July 23, 2024 End: July 23, 2024 Visit Care Team Team Status: Active Member Role Status Dates Julia Casas MD Primary Care Provider Active Start: July 29, 2024 Jessika Perry MD Attending Provider Active Start: July 29, 2024 Aurora Falcon PA-C Referring Provider Active Sta rt: July 29, 2024 Patient Care Team Team Status: Inactive Member Role Status Dates Julia Casas MD Primary Care Provide r, Attending Provider Active Start: August 04, 2024 End: August 04, 2024 Chief Complaint and Reason for Visit Chief Complaint Admit Date NEW- M Farhat slightly elevated CRP July 022024 8:50am Follow Up 3 Weeks July 23, 2024 8:48a m M spike, slightly elevated July 29 8:30am Med f/u August 04, 2024 9:20a m Reason for Visit Admit Date Chronic vertigo July 02, 2024 8:50am Lumbar degenerative disc disease July 8:50am Monoclonal gammopathy of undetermined si gnificance (MGUS) July 02, 2024 8:50am Peripheral neuropathy July 02, 2024 8:50 am Chronic vertigo July 23, 2024 8:48a m Elevated liver function tests July 23, 2024 8:48am Lumbar degenerative disc disease July 8:48am Monoclonal gammopathy of undetermined si gnificance (MGUS) July 23, 2024 8:48am Peripheral neuropathy July 23, 2024 8:4 8am 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 August 04, 2024 9:20am Fatigue August 04, 2024 9:20a m Hypothyroidism, unspecified August 04 9:20am Leg cramps August 04, 2024 9:20a m Screening mammogram for breast cancer 2024 9:20am Allergies, Adverse Reactions, Alerts No known allergies Social History Smoking Status Status Start Date End Date Date of Observa tion Ex-smoker (finding) August 9:57am Observation Status Observation Response Date of Response Patient Sex Female August 04, 2024 9 :58am Assigned Sex Female September 29 Family History Relationship Condition Age at Onset Recorded Date/T elmo father Unknown family member Unknown mother Unknown Problems Active Problems Medical Problem Onset Date Status 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 Active Encounter for immunization Activ e Screening mammogram for breast cancer Active Fatigue Active Myalgia Active Monoclonal gammopathy of undetermined significan ce (MGUS) Active Elevated liver function tests Ac tive Hypothyroidism, unspecified March 05, 2014 Ac tive Leg cramps Active Peripheral neuropathy Active Lumbar degenerative disc disease Active Chronic vertigo Active Medications Medication Status Dose Units Route Directions Qty Days St art Date Stop Date End Date Instructions Doxycycline Hyclate 100 mg capsule Discont inued 100 MG PO Twice daily 2023 1:00am August 06, 2023 10:08 am Levothyroxin e 75 mcg tablet Discont inued 75 MCG PO daily August 08, 2023 12:00a m October 02, 2023 8:06a m Levothyroxin e 75 mcg tablet Discont inued 0 .ROUTE .COMPLEX October 02, 2023 8:06am Octob er 2023 10:56 am TAKE 1 TABLET BY MOUTH EVERY DAY Levothyroxin e 75 mcg tablet Discont inued 0 .ROUTE .COMPLEX Octobe r 2023 10:56a m Novem roberto carlos 2023 2:20p m TAKE 1 TABLET BY MOUTH EVERY DAY Levothyroxin e 75 mcg tablet Discont inued 0 .ROUTE .COMPLEX Novemb er 2023 2:20pm Marua ry 2024 5:09p m TAKE 1 TABLET BY MOUTH EVERY DAY Levothyroxin e 75 mcg tablet Discont inued 0 .ROUTE .COMPLEX r y 2024 5:09pm May 29, 2024 9:43a m TAKE 1 TABLET BY MOUTH EVERY DAY Levothyroxin e 75 mcg tablet Discont inued 0 .ROUTE .COMPLEX May 29, 2024 9:43am July 28, 2024 12:21 pm TAKE 1 TABLET BY MOUTH EVERY DAY Levothyroxin e 75 mcg tablet Active 0 .ROUTE .COMPLEX July 28, 2024 12:21p m TAKE 1 TABLET BY MOUTH EVERY DAY Immunizations Immunization Event Date Not Given Reason Dose Number Paper Cutter Operator Lot Number Vaccine Information Statement (VIS) Detail COVID-19 Omega, Comirnatjulianna (Face-Me) February 02, 2021 Fluzone TIV High-Dose [id number] February 14, 2024 [id number] influenza, unspecified formulation December 01, 2019 influenza, unspecified formulation December 26, 2020 Procedures Procedure Date Performed Status US liver July 29, 2024 8:31am completed Relevant Diagnostic Tests and/or Laboratory Data Laboratory Results Test Date/Time Result Interpretation Reference Range Result Comment Performing Site Corrected White Blood Count July 02, 2024 10:07am 5.3 10*3/uL 3.8-11.6 [facility] [id number] [address] [facility] [address] Uncorrected WBC Count July 02, 2024 10:07am 5.3 10*3/uL 3.8-11.6 [facility] [id number] [address] [facility] [address] Red Blood Count July 02, 2024 10:07am 5.07 10*6/uL Above high normal 3.60-5.00 [facility] [id number] [address] [facility] [address] Hemoglobin July 02, 2024 10:07am 15.5 g/dL Above high normal 11.8-15.4 [facility] [id number] [address] [facility] [address] Hematocrit July 02, 2024 10:07am 46.4 % 34.0-46.4 [facility] [id number] [address] [facility] [address] Mean Corpuscular Volume July 02, 2024 10:07am 91.4 fL 80-100 [facility] [id number] [address] [facility] [address] Mean Corpuscular Hemoglobin July 02, 2024 10:07am 30.7 pg 24.7-34.3 [facility] [id number] [address] [facility] [address] Mean Corpuscular Hemoglobin Concent July 02, 2024 10:07am 33.5 g/dL 32.0-35.0 [facility] [id number] [address] [facility] [address] Red Cell Distribution Width July 02, 2024 10:07am 13.6 % 11.9-15.3 [facility] [id number] [address] [facility] [address] Platelet Count July 02, 2024 10:07am 204 10*3/uL 150-450 [facility] [id number] [address] [facility] [address] Mean Platelet Volume July 02, 2024 10:07am 8.2 fL 6.3-10.7 [facility] [id number] [address] [facility] [address] Neutrophils (%) (Auto) July 02, 2024 10:07am 67.7 % . [facility] [id number] [address] [facility] [address] Lymphocytes (%) (Auto) July 02, 2024 10:07am 23.8 % . [facility] [id number] [address] [facility] [address] Monocytes (%) (Auto) July 02, 2024 10:07am 6.8 % . [facility] [id number] [address] [facility] [address] Eosinophils (%) (Auto) July 02, 2024 10:07am 1.1 % . [facility] [id number] [address] [facility] [address] Basophils (%) (Auto) July 02, 2024 10:07am 0.6 % . [facility] [id number] [address] [facility] [address] Nucleated RBC Relative Count (auto) July 02, 2024 10:07am 0.2 /100{WBC } 0-0.5 [facility] [id number] [address] [facility] [address] Neutrophils # (Auto) July 02, 2024 10:07am 3.6 10*3/uL 1.8-7.7 [facility] [id number] [address] [facility] [address] Lymphocytes # (Auto) July 02, 2024 10:07am 1.3 10*3/uL 1.00-4.8 [facility] [id number] [address] [facility] [address] Monocytes # (Auto) July 02, 2024 10:07am 0.4 10*3/uL 0.0-0.8 [facility] [id number] [address] [facility] [address] Eosinophils # (Auto) July 02, 2024 10:07am 0.1 10*3/uL 0.0-0.45 [facility] [id number] [address] [place] [id number] Basophils # (Auto) July 02, 2024 10:07am 0.0 10*3/uL 0.0-0.2 [facility] [id number] [address] [place] [id number] Glucose Level July 02, 2024 10:07am 112 mg/dL Above high normal 70-100 ADA recommended reference rangeRandom Glucose Reference Range is dependent on time and content of last meal. Glucose of more than 200 mg/dL in a nonstressed, ambulatory subject supports the diagnosis of Diabetes Mellitus. [facility] [id number] [address] [place] [id number] Blood Urea Nitrogen July 02, 2024 10:07am 15 mg/dL 7-25 [facility] [id number] [address] [place] [id number] Creatinine July 02, 2024 10:07am 0.98 mg/dL 0.60-1.20 [facility] [id number] [address] [place] [id number] Estimated GFR (CKD-EPI) July 02, 2024 10:07am > 60.0 mL/Min [facility] [id number] [address] [place] [id number] Sodium Level July 02, 2024 10:07am 140 mmol/L 136-145 [facility] [id number] [address] [place] [id number] Potassium Level July 02, 2024 10:07am 4.5 mmol/L 3.5-5.1 [facility] [id number] [address] [place] [id number] Chloride Level July 02, 2024 10:07am 102 mmol/L 98-107 [facility] [id number] [address] [place] [id number] Carbon Dioxide Level July 02, 2024 10:07am 30.4 mmol/L 21.0-31.0 [facility] [id number] [address] [place] [id number] Anion Gap July 02, 2024 10:07am 12.1 mEq/L 6.0-15.0 [facility] [id number] [address] [place] [id number] Calcium Level July 02, 2024 10:07am 9.6 mg/dL 8.6-10.3 [facility] [id number] [address] [facility] [address] Total Protein July 02, 2024 10:07am 7.1 g/dL 6.4-8.9 [facility] [id number] [address] [facility] [address] Albumin July 02, 2024 10:07am 4.1 g/dL 3.5-5.7 [facility] [id number] [address] [facility] [address] Globulin July 02, 2024 10:07am 3.0 g/dL [facility] [id number] [address] [facility] [address] Albumin/Globul in Ratio July 02, 2024 10:07am 1.4 [facility] [id number] [address] [place], [place] [address] Total Bilirubin July 02, 2024 10:07am 1.2 mg/dL Above high normal 0.3-1.0 [facility] [id number] [address] [place] [address] Aspartate Amino Transf (AST/SGOT) July 02, 2024 10:07am 316 U/L Above high normal 13-39 [facility] [id number] [address] [place] [address] Alanine Aminotransfera se (ALT/SGPT) July 02, 2024 10:07am 273 U/L Above high normal 7-52 [facility] [id number] [address] [place] [address] Alkaline Phosphatase July 02, 2024 10:07am 117 U/L Above high normal 34-104 [facility] [id number] [address] [place] [address] Pharmacy Creatinine Clearance (Chem July 02, 2024 10:07am 72.86 [facility] [id number] [address] [place] [address] Urine Random Creatinine July 02, 2024 10:30am 204.00 mg/dL No reference range established [facility] [id number] [address] [place] [address] Urine Random Total Protein July 02, 2024 10:30am 16 mg/dL Above high normal 0-9 [facility] [id number] [address] [place] [address] Serum Immunofixation July 02, 2024 10:07am Comment Abnormal (applies to non-numeric results) . Immunofixation shows IgM monoclonal protein with lambdalight chain specificity. [facility] Immunoglobulin G July 02, 2024 10:07am 1123 mg/dL [phone] [facility] 00 Immunoglobulin A July 02, 2024 10:07am 194 mg/dL 87-352 [facility] 00 Immunoglobulin M July 02, 2024 10:07am 217 mg/dL 26-217 Performed at: [address] [id number] Director: Dimas Shetty PhD, Phone: [phone] [facility] 00 Oluo-6-Sdjvocu obulin July 02, 2024 10:07am 2.2 mg/L 0.6-2.4 Siemens Immulite 2000 Immunochemilumino metric assay (ICMA)Values obtained with different assay methods or kits cannotbe used interchangeably. Results cannot be interpreted asabsolute evidence of the presence or absence of malignantdisease. Performed at: [address] [id number] Director: Garcia Barbosa MD, Phone: [phone] [facility] 00 Serum Total Protein July 02, 2024 10:07am 7.0 g/dL 6.0-8.5 [facility] 00 Albumin (Send Out) July 02, 2024 10:07am 3.4 g/dL 2.9-4.4 [facility] 00 Rbwat-0-Nslttx ins July 02, 2024 10:07am 0.3 g/dL 0.0-0.4 [facility] 00 Krosq-0-Cdhvnz ins July 02, 2024 10:07am 0.9 g/dL 0.4-1.0 [facility] 00 Beta Globulins July 02, 2024 10:07am 1.1 g/dL 0.7-1.3 [facility] 00 Gamma Globulins July 02, 2024 10:07am 1.2 g/dL 0.4-1.8 [facility] 00 Protein Electrophoresi s M-Farhat July 02, 2024 10:07am 0.3 g/dL Above high normal Not Observed [facility] 00 Globulin (PEP) July 02, 2024 10:07am 3.6 g/dL 2.2-3.9 [facility] 00 Albumin/Globul in (PEP) July 02, 2024 10:07am 0.9 0.7-1.7 [facility] 00 Protein Electrophoresi s Note July 02, 2024 10:07am Comment . Protein electrophoresis scan will follow via computer,mail, or reinsurance claim analyst delivery.Performe d at: [id number] [place], [place] [id number] Director: Dimas Shetty PhD, Phone: [phone] [facility] 00 Free Devol Light Chains, Quant July 02, 2024 10:07am 30.3 mg/L Above high normal 3.3-19.4 [facility] 00 Free Lambda Light Chains, Quant July 02, 2024 10:07am 19.0 mg/L 5.7-26.3 [facility] 00 Free Devol/Lambda Light Chain Ratio July 02, 2024 10:07am 1.59 0.26-1.65 Performed at: [facility] [id number] [place] [id number] Director: Dimas Shetty PhD, Phone: [phone] [facility] 00 Urine Immunofixation July 02, 2024 10:30am Comment . No monoclonality detected.Performe d at: [facility] [id number] [place], [place] [id number] Director: Dimas Shetty PhD, Phone: [phone] [facility] 00 Diagnostic Imaging Reports Author Trevor Neil [facility] Authored July 29, 2024 10:25 am Report Dictated Date/Time Dictated By Status Radiology Report July 29, 2024 10:25am Trevor Neil , DO arun [facility] [place] [address] Ultrasound Report Signed Patient: Diane Luna MR#: [id number] : 1955 Acct:[id number] Age/Sex: 68 / F ADM Date: 5 Loc: XT Room: [facility] Attending Dr: Jessika Perry MD Ordering Provider: Jessika Perry MD Date of Service: 07/29/24 US/US liver: R74.8 - Abnormal levels of other serum enzymes Copies to: Jessika Perry MD~ Liver ultrasound HISTORY: Elevated LFTs COMPARISON: None Negative ultrasound Sandoval's sign reported. COMMON BILE DUCT: Borderline prominence measuring 6 mm. LIVER CONTOUR: Normal. LIVER PARENCHYMA: Normal echogenicity HEPATIC LESION: None INTRAHEPATIC BILIARY DUCTAL DILATATION No ductal dilatation identified. GALLSTONES: Shadowing echogenic gallstones GALLBLADDER SLUDGE: No gallbladder sludge. GALLBLADDER WALL: 3.8 mm gallbladder wall thickening PERICHOLECYSTIC FLUID: None Pancreas: Unremarkable PORTAL VEIN: Normal blood flow. Liver size: Normal No RIGHT hydronephrosis identified. US/US liver IMPRESSION: Borderline prominence of common bile duct without intrahepatic biliary ductal dilatation. Cholelithiasis and gallbladder wall thickening. May consider cholecystitis. Impression dictated by: Trevor Neil M.D. 07/29/2024 10:30 AM Dictation Location: [place] [address] Tech: Digna Birch Transcribed By: GENOVEVA 07/29/24 1030 Dictated By: Trevor Neil DO 07/29/24 1025 Signed By: <Electronically signed by Trevor Neil DO in OV> 07/29/24 1030 Vital Signs Vital Reading Result Reference Range Collection Date/Time Height 65 [in_i] July 02, 2024 8 :54am Weight 118.84 kg July 02, 2024 8 :54am Body Temperature 97.7 [degF] 97.6-99.0 July 02 8:54am Heart Rate 83 /min 60-100 July 02, 2024 8 :54am Respiratory rate 16 /min 12-24 July 02 8:54am Oxygen saturation by Pulse oximetry 94 % 95-10 0 July 02, 2024 8:54am BP Systolic 154 mm[Hg] 100-140 July 02, 2024 8 :54am BP Diastolic 94 mm[Hg] 60-100 July 02, 2024 8 :54am BMI (Body Mass Index) 43.6 kg/m2 July 8:54am Height 65 [in_i] July 23, 2024 8:53am Weight 118.38 kg July 23, 2024 8:53am Body Temperature 97.6 [degF] 97.6-99.0 July 23, 2 025 8:53am Heart Rate 80 /min 60-100 July 23, 2024 8:53am Respiratory rate 18 /min 12-24 July 23, 2 025 8:53am Oxygen saturation by Pulse oximetry 97 % 95-10 0 July 23, 2024 8:53am BP Systolic 151 mm[Hg] 100-140 July 23, 2024 8:53am BP Diastolic 88 mm[Hg] 60-100 July 23, 2024 8:53am BMI (Body Mass Index) 43.4 kg/m2 July 232024 8:53am Height 65 [in_i] July 23, 2024 8:53am Weight 118.38 kg July 23, 2024 8:53am Height 65 [in_i] August 04, 2024 9:26am Weight 118.38 kg August 04, 2024 9:26am Heart Rate 68 /min 60-100 August 04, 2024 9:26am BP Systolic 133 mm[Hg] 100-140 August 04, 2024 9:26am BP Diastolic 83 mm[Hg] 60-100 August 04, 2024 9:26am BMI (Body Mass Index) 43.4 kg/m2 August 042024 9:26am Advance Directives Advance Directive Response Recorded Date/ Time Advance Directives No August 04 9:57am Insurance Providers Guarantor Diane Luna Address [address] [place] [phone] Contact Info. Home Phone: Payer Policy Id Coverage Id Subscriber's Name Subscriber Id Effective Date Expiration Date MMO [id number] Evan Luna [id number] Medicare [id number] Diane Luna [id number] [employer] [facility] [id number] Diane Appiah Jeremy [id number] Encounters Encounter Location(s) Arrival/Admit Date Discharge/Depart Date Provider(s) Departed Physician/Provi jassi Office Visit [facility] July 02, 2024 8:50am July 02, 2024 9:33am Marilin Hendricks MD Departed Physician/Provi jassi Office Visit [facility] July 23, 2024 8:48am July 23, 2024 9:17am Marilin Hendricks MD [facility] July 29, 2024 8:30am Marilin Hendricks MD Departed Physician/Provi jassi Office Visit [facility] August 04, 2024 9:20am August 04, 2024 9:58am Julia Casas MD Recent Diagnosis Onset Date Admit Date Chronic vertigo July 02, 2024 8: 50am Lumbar degenerative disc disease July 02, 2024 8:50am Monoclonal gammopathy of und etermined significance (MGUS) July 02, 2024 8:50am Peripheral neuropathy July 02 8:50am Chronic vertigo July 23, 2024 8 :48am Elevated liver function tests Ma y 2024 8:48am Lumbar degenerative disc disease July 23, 2024 8:48am Monoclonal gammopathy of und etermined significance (MGUS) July 23, 2024 8:48am Peripheral neuropathy July 23, 2024 8:48am 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 August 04, 2024 9:20a m Fatigue August 04, 2024 9 :20am Hypothyroidism, unspecified March 05, 2014 Ju 2024 9:20am Leg cramps August 04, 2024 9 :20am Screening mammogram for breast cancer August 04, 2024 9:20am Assessments Diagnosis Onset Date Resolution Status Admit Date Chronic vertigo acute July 02, 2024 8:50am Lumbar degenerative disc disease acute July 02, 2024 8: 50am Monoclonal gammopathy of undetermined significance (MGUS) acute July 02, 2024 8: 50am Peripheral neuropathy acute July 02, 2024 8:50am Chronic vertigo acute July 23, 2024 8:48am Elevated liver function tests acute July 23, 2024 8 :48am Lumbar degenerative disc disease acute July 23, 2024 8 :48am Monoclonal gammopathy of undetermined significance (MGUS) acute July 23, 2024 8 :48am Peripheral neuropathy acute July 23, 2024 8:48am 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 Her most recent chemistry profile and CBC did not reveal anemia, hypercalcemia, or renal dysfunction however this should be repeated due to her recent abnormal M spike to rule out criteria for treating her monoclonal gammopathy. She has had chronic neuropathy with recent worsening and also persistent vertigo of unclear etiology. We discussed further workup of monoclonal gammopathy to include CBC, CMP, repeat serum protein electrophoresis with immunofixation, urine protein electrophoresis with immunofixation with random urine protein and creatinine, quantitative immunoglobulins, serum kappa/lambda light chain ratio, and beta-2 microglobulin levels. We will review the results in 2 to 3 weeks. I am deferring skeletal survey as patient recently had MRIs in February showing no evidence of abnormal lumbar signal, however if she does show significant worsening of M spike we will likely reevaluate with whole-body PET/CT and bone marrow aspiration and biopsy. We will review the results of her laboratory workup in about 2 to 3 weeks. All questions were answered the patient and her over this 1 hour high complexity consultation for review of prior workup and outside records. Thank you for referring this pleasant patient to our practice. I will keep you up-to-date with her progress. Please feel free to contact me if you have any questions regarding her care. Sincerely, Dr. Jessika Perry Unclear etiology and did not respond to physical therapy. Continue workup with neurology although may consider brain imaging and paraneoplastic workup as well. No history of diabetes mellitus or known toxic exposures such as chemotherapy. Continue workup of idiopathic neuropathy with neurology clinic. This also may be an indication for treatment for monoclonal gammopathy and we will discuss this based on the results of her laboratory workup ordered today. Recent cervical and lumbar MRIs show degenerative disc disease but no evidence of cord compression or abnormal signal. Currently denies any significant pain and unclear whether her neuropathy is due to chronic disc disease or systemic disorders such as MGUS. Continue workup and follow-up with neurology. Author Jessika Perry [facility] Authored July 23, 2024 9:20a m 07/02/2024: This is a 68-year- old lady without history of diabetes or malignancy who was noted to have abnormal serum protein electrophoresis with M spike 0.2 and 0.3 on recent laboratory evaluations. Her most recent chemistry profile and CBC did not reveal anemia, hypercalcemia, or renal dysfunction however this should be repeated due to her recent abnormal M spike to rule out criteria for treating her monoclonal gammopathy. She has had chronic neuropathy with recent worsening and also persistent vertigo of unclear etiology. We discussed further workup of monoclonal gammopathy to include CBC, CMP, repeat serum protein electrophoresis with immunofixation, urine protein electrophoresis with immunofixation with random urine protein and creatinine, quantitative immunoglobulins, serum kappa/lambda light chain ratio, and beta-2 microglobulin levels. We will review the results in 2 to 3 weeks. I am deferring skeletal survey as patient recently had MRIs in February showing no evidence of abnormal lumbar signal, however if she does show significant worsening of M spike we will likely reevaluate with whole-body PET/CT and bone marrow aspiration and biopsy. We will review the results of her laboratory workup in about 2 to 3 weeks. All questions were answered the patient and her over this 1 hour high complexity consultation for review of prior workup and outside records. 07/23/2024: Patient is here to follow-up her monoclonal gammopathy testing which reveals IgM kappa on immunofixation and relatively stable M spike 0.3 g/dL with normal quantitative immunoglobulins, mild elevation of free kappa with normal kappa/lambda light chain ratio. Urine immunofixation was negative for monoclonal spike. At this time she should not require bone marrow biopsy or PET/CT CT for further workup but we will repeat her laboratories in 3 months. We proceeded with workup of her abnormal liver function tests as noted above and we will expedite outpatient consult with gastroenterology. She agrees with plan to proceed with GI workup and defer further workup of monoclonal gammopathy with no significant monoclonality that would prompt bone marrow biopsy at this time. Unclear etiology and did not respond to physical therapy. Continue workup with neurology although may consider brain imaging and paraneoplastic workup as well. No history of diabetes mellitus or known toxic exposures such as chemotherapy. Continue workup of idiopathic neuropathy with neurology clinic. This also may be an indication for treatment for monoclonal gammopathy and we will discuss this based on the results of her laboratory workup ordered today. Recent cervical and lumbar MRIs show degenerative disc disease but no evidence of cord compression or abnormal signal. Currently denies any significant pain and unclear whether her neuropathy is due to chronic disc disease or systemic disorders such as MGUS. Continue workup and follow-up with neurology. Patient was here to follow-up testing for monoclonal gammopathy and was found on chemistry panel to have AST 10 times the upper limit of normal with ALT greater than 5 times upper limit of normal, elevated total bilirubin and alkaline phosphatase. I am sending for liver ultrasound to rule out obstruction, acute hepatitis panel for hepatitis A/hepatitis B/hepatitis C as well as serum iron profile and ferritin for possible hemochromatosis. She was instructed to stop all alcohol use pending this evaluation. Her only medication is levothyroxine. We have no comparison liver tests. I am coordinating her expedited outpatient evaluation with gastroenterology to review these results and further workup. 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 This is a moderate complexity 35-minute follow-up of complex medical testing. Future Tests Future scheduled test information is unavailable Pending Tests Test Name Ordered Date Scheduled Date Comprehensive Metabolic Panel July 23, 2024 9:1 0am 3 Days Comprehensive Metabolic Panel July 23, 2024 9:1 3am 3 Months Hepatitis A Antibody Total July 23, 2024 9:11am 3 Days Hepatitis B Surface Antibody July 23, 2024 9:11 am 3 Days Immunofixation, (WILLAM), Urine July 23, 2024 9:13 am 3 Months MM screening mammo BI w/CAD August 04, 2024 9:49a m Future Visits Future appointment information is unavailable Referrals to Other Providers Referral information is unavailable Future Procedures Procedure Name Ordered Date Scheduled Date Protein Electro, Random Urine July 02, 2024 9:25 am 1 Days Complete Blood Count Auto Diff July 23, 2024 9: 13am 3 Months Complete Blood Count Auto Diff July 23, 2024 9: 10am 3 Days Iron and TIBC Profile July 23, 2024 9:10am 3 Da ys Ferritin July 23, 2024 9:10am 3 Days Hepatitis B Core Antibody July 23, 2024 9:11am 3 Days Hepatitis B Surface Antigen July 23, 2024 9:11a m 3 Days Hep C Ab wRfx to Qnt PCR July 23, 2024 9:11am 3 Days HIV 1/O/2 Antigen/Antibody July 23, 2024 9:11am 3 Days Immunofixation,Serum July 23, 2024 9:13am 3 Mon ths Immunoglobulins A/G/M, Qn, Ser July 23, 2024 9: 13am 3 Months Free K+L LT Chains, Qn, S July 23, 2024 9:13am 3 Months Protein Electrophoresis, Serum July 23, 2024 9: 13am 3 Months Protein Electro, Random Urine July 23, 2024 9:1 3am 3 Months Magnesium August 04, 2024 9:47am Free T4 (Free Thyroxine) August 04, 2024 9:43am Thyroid Antibodies TPO+Tg Ab August 04, 2024 9:43 am Thyroid Stim Hormone w/Rflx August 04, 2024 9:43a m Future Medications Future medication information is unavailable Patient Instructions Patient instructions are unavailable
--- OUTSIDE RECORDS SUMMARY | 2024-08-04 10:14 | XMS_ITS | Encounter Summary ---
Author Organization [facility] Address [address] [place] [address] Care Team Providers Care Photostatic Copy Maker Name Role Phone Joe Greene MD Unavailable Unavailable Aurora Falcon Unavailable Julia Casas MD Primary Care Provider [phone] Encounter Details Date Type Department Care Team (Late st Contact Info) Description 07/29/2024 External Result Encounter [facility] External Department Unsolicited Jessika Perry MD [address] [place] [address] Social History Tobacco Use Types Packs/Day Years Used Date Smoking Tobacco: Former Cigarettes Smokeless Tobacco: Never Comments Unknown Sex and Gender Information Value Date Recorded Sex Assigned at Not on file Legal Sex Female 12:18 PM EDT Gender Identity Not on file Sexual Orientation Not on file documented as of this encounter Plan of Treatment Not on file documented as of this encounter Procedures Procedure Name Priority Date/Time Associated Diagnosis Comments US LIVER 07/29/2024 10:25 AM EDT documented in this encounter Results * US LIVER (07/29/2024 10:25 AM EDT) Anatomical Region Laterality Modality Abdomen Ultrasound 07/29/2024 10:2 5 AM EDT Impressions 07/29/2024 10:32 AM EDT Borderline prominence of common bile duct without intrahepatic biliary ductal dilatation. Cholelithiasis and gallbladder wall thickening. May consider cholecystitis. Impression dictated by: Trevor Neil M.D. 07/29/2024 10:30 AM Dictation Location: [facility] Tech: Digna Birch Transcribed By: GENOVEVA 07/29/24 1030 Dictated By: Trevor Neil DO 07/29/24 1025 Signed By: <Electronically signed by Trevor Neil DO in OV> 07/29/24 1030 Narrative 07/29/2024 10:32 AM EDT [facility] [place] [address] Ultrasound Report Signed Patient: Diane Luna MR#: [id number] : 1955 Acct:[id number] Age/Sex: 68 / F ADM Date: 07/29/24 Loc: XT Room: Type: [facility] RCR Attending Dr: Jessika Perry MD Ordering Provider: Jessika Perry MD Date of Service: 07/29/24 US/US liver: R74.8 - Abnormal levels of other serum enzymes Copies to: Jessika Perry MD Liver ultrasound HISTORY: Elevated LFTs COMPARISON: None [...] Normal No RIGHT hydronephrosis identified. US/US liver Procedure Note Radiology, Radiologist, MD - 07/29/2024 [facility] Main [place] [id number] Ultrasound Report Signed Patient: Diane Luna AMR#: [id number] : 8Acct:[id number] Age/Sex: 68 / FADM Date: 07/29/24 Loc: XT Room:Type: [facility] RCR Attending Dr: Jessika Perry MD Ordering Provider: Jessika Perry MD Date of Service: 07/29/24 US/US liver: R74.8 - Abnormal levels of otherserum enzymes Copies to: Jessika Perry MD Liver ultrasound HISTORY: Elevated LFTs COMPARISON: None [...] prominence of common bile duct without intrahepatic biliaryductal dilatation. Cholelithiasis and gallbladder wall thickening. May considercholecystitis. Impression dictated by: Trevor Neil M.D. 07/29/2024 10:30 AM Dictation Location: [place] [address] Tech: Digna Birch Transcribed By: PWS 07/29/24 1030 Dictated By: Trevor Neil DO 07/29/24 1025 Signed By: <Electronically signed by Trevor Neil DO in OV> 07/29/24 1030 us Jessika Perry MD IMG US PROCEDURES Final Result documented in this encounter Visit Diagnoses Not on filedocumented in this encounter Care Teams Photostatic Copy Maker Relationship Specialty Start Date End Date Julia Casas MD [address] [place] [id number] PCP - General Family Medicine 07/22/24 Joe Greene MD Referring Physician Neurology 02/10/24 Aurora Falcon PA [address] [place] [address] Physician Slope Hoist Operator Neurology 05/20/24 documented as of this encounter
--- OUTSIDE RECORDS SUMMARY | 2024-08-04 10:14 | XMS_ITS | Clinical Summary ---
Author Organization [facility] Address [address] [place] [address] Care Team Providers Care Armor Officer Name Role Phone Joe Greene MD Unavailable Unavailable Aurora Faclon Unavailable Julia Casas MD Primary Care Provider [phone] Allergies No known active allergies Medications Sodium Fluoride 5000 PPM 1.1 % paste USE UP TO 3 TIMES DAILY TOOTHPASTE, EXPECTORATE AFTER 2 MINS, NO FOOD/DRINK FOR 60 MINS AFTER USE 3 Active ketorolac (Acular) 0.4 % ophthalmic solutionIndicatio ns:Age-related nuclear cataract of both eyes INSTILL 1 DROP IN BOTH EYES IN MORNING AND BEFORE BEDTIME FOR 3 DAYS 5 mL 1 3 Active Additional Information Patient not taking.Reported on 05/20/2024 levothyroxine (Synthroid, Levoxyl) 75 MCG tablet Take 75 mcg by mouth Daily 4 Active diazePAM (Valium) 2 MG tabletIndications :Lumbar radiculopathy 1 tablet 30 minutes prior to MRI. Can repeat [address] 2 tablet 4 Active Additional Information Patient not taking.Reported on 05/20/2024 tiZANidine (Zanaflex) 4 MG tabletIndications :Lumbar radiculopathy TAKE 1/2 TO 1 TABLET BY MOUTH AT BEDTIME 90 tablet 1 4 Active Additional Information Patient not taking.Reported on 05/20/2024 Active Problems Problem Noted Date Diagnosed Date Lumbar radiculopathy 11/07/2023 Age-related nuclear cataract of both eyes 2022 Encounters Date Type Department Care Team Description 07/29/2024 External Result Encounter [facility] External Department Unsolicited Jessika Perry MD 07/02/2024 External Result Encounter [facility] External Department Unsolicited Jessika Perry MD 07/02/2024 External Result Encounter [facility] External Department Unsolicited Jessika Perry MD 07/02/2024 External Result Encounter [facility] External Department Unsolicited Jessika Perry MD 07/02/2024 External Result Encounter [facility] External Department Unsolicited Jessika Perry MD 07/02/2024 External Result Encounter [facility] External Department Unsolicited Jessika Perry MD 05/20/2024 2:00 PM EDT Office Visit [facility] [address] [place] [phone] Aurora Falcon PA Neuropathy (Primary Dx); Balance problems; Neck pain; Weakness from Last 3 Months Immunizations Immunization Administration Dates Next Due Influenza, injectable, quadrivalent, preservativ e free 12/29/2021 Family History Medical History Relation Name Comments Alcohol abuse Father Cancer Mother Cataracts Mother Heart disease Mother Diabetes Other Heart disease Other Thyroid disease Other Relation Name Status Comments Father Mother dec. Brain trau ma Other Social History Tobacco Use Types Packs/Day Years Used Date Smoking Tobacco: Former Cigarettes Smokeless Tobacco: Never Tobacco Cessation:Counseling Given: Not Answered Comments Unknown Sex and Gender Information Value Date Recorded Sex Assigned at Not on file Legal Sex Female 12:18 PM EDT Gender Identity Not on file Sexual Orientation Not on file Last Filed Vital Signs Vital Sign Reading Time Taken Comments Blood Pressure 138/88 05/20/2024 1:52 PM EDT Pulse 74 12/05/2023 9:37 AM EDT Temperature - - Respiratory Rate - - Oxygen Saturation 93% 09/19/2023 10:00 AM EDT Inhaled Oxygen Concentration - - Weight 118 kg (261 lb) 05/20/2024 1:52 PM EDT Height 165.1 cm (5' 5 ) 05/20/2024 1:52 PM EDT Body Mass Index 43.43 05/20/2024 1:52 PM EDT Plan of Treatment Health Maintenance Due Date Last Done Comments CT Colonography 1955 Colonoscopy 1955 Colorectal Cancer Screening 1955 FIT-DNA 1955 FIT 1955 FOBT 1955 Sigmoidoscopy 1955 Mammogram 1997 Pneumococcal Vaccine: 65+ Ye ars (1 of 1 - PCV) 09/28/2007 Influenza Vaccine Completed 02/14/2024, 12/29/2021 Procedures Procedure Name Priority Date/Time Associated Diagnosis Comments US LIVER 07/29/2024 10:25 AM EDT IMMUNOFIXATION, (WILLAM), URINE Routine 07/02/2024 10:30 AM EDT TOTAL PROTEIN, URINE Routine 07/02/2024 10:30 AM EDT CREATININE, RANDOM URINE Routine 07/02/2024 10:30 AM EDT IMMUNOFIXATION,SERUM ([facility]) Routine 07/02/2024 10:07 AM EDT BETA 2 MICROGLOBULIN, SERUM Routine 07/02/2024 10:07 AM EDT FREE K+L LT CHAINS, QN, S Routine 07/02/2024 10:07 AM EDT PROTEIN ELECTROPHORESIS, SERUM Routine 07/02/2024 10:07 AM EDT COMPREHENSIVE METABOLIC PANEL Routine 07/02/2024 10:07 AM EDT CBC WITH AUTO DIFFERENTIAL Routine 07/02/2024 10:07 AM EDT from Last 3 Months Results * US LIVER (07/29/2024 10:25 AM EDT) Anatomical Region Laterality Modality Abdomen Ultrasound 07/29/2024 10:2 5 AM EDT Impressions 07/29/2024 10:32 AM EDT Borderline prominence of common bile duct without intrahepatic biliary ductal dilatation. Cholelithiasis and gallbladder wall thickening. May consider cholecystitis. Impression dictated by: Trevor Neil M.D. 07/29/2024 10:30 AM Dictation Location: [place] [address] Tech: Digna Birch Transcribed By: GENOVEVA 07/29/24 1030 Dictated By: Trevor Neil DO 07/29/24 1025 Signed By: <Electronically signed by Trevor Neil DO in OV> 07/29/24 1030 Narrative 07/29/2024 10:32 AM EDT [facility] Main [place] [id number] Ultrasound Report Signed Patient: Diane Luna MR#: [id number] : 1955 Acct:[id number] Age/Sex: 68 / F ADM Date: 07/29/24 Loc: XT Room: Type: REG RCR Attending Dr: Jessika Prery MD Ordering Provider: Jessika Perry MD Date [...] Procedure Note Radiology, Radiologist, MD - 07/29/2024 [facility] Main [place] [id number] Ultrasound Report Signed Patient: Diane Luna AMR#: [id number] : 1955cct:[id number] Age/Sex: 68 / FADM Date: 07/29/24 Loc: XT Room:Type: [facility] RCR Attending Dr: Jessika Perry MD Ordering [...] Neil M.D. 07/29/2024 10:30 AM Dictation Location: [place] [address] Tech: Digna Bicrh Transcribed By: PWS 07/29/24 1030 Dictated By: Trevor Neil DO 07/29/24 1025 Signed By: <Electronically signed by Trevor Neil DO in OV> 07/29/24 1030 us Jessika Perry MD IMG US PROCEDURES Final Result * (ABNORMAL) TOTAL PROTEIN, URINE (07/02/2024 10:30 AM EDT) [facility] TOTAL PROTEIN, URINE 16(H) 0 - 9 mg/dL 07/02/2024 11:56 AM EDT [facility] Other 07/02/2024 10:3 0 AM EDT 07/02/2024 10:30 AM EDT us Jessika Perry MD LAB BLOOD ORDERABLES Final Resul t [facility] [address] [place] [address], [facility] [address] [place] [address] * IMMUNOFIXATION, (WILLAM), URINE (07/02/2024 10:30 AM EDT) Pathologist [facility] IMMUNOFIXATION, (WILLAM), URINE Comment . 07/06/2024 4:10 PM EDT [facility] Comment: No monoclonality detected. Performed at: [address] [id number] Bulb Sorter: Dimas Shetty PhD, Phone: [phone] Other 07/02/2024 10:3 0 AM EDT 07/02/2024 10:30 AM EDT Jessika Perry MD LAB BLOOD ORDERABLES Final Resul t Performing Organization Address [facility] [place] [place] [address], * Creatinine, urine, random (07/02/2024 10:30 AM EDT) CREATININE, URINE (RANDOM) 204.00 mg/dL 07/02/2024 11:56 AM EDT [facility] Comment:No reference range e stablished Other 07/02/2024 10:3 0 AM EDT 07/02/2024 10:30 AM EDT Jessika Perry MD LAB URINE ORDERABLES Final Resul t Performing Organization Address [facility] [place] [place] [address], [facility] [address] [place], [place] [id number] * BETA 2 MICROGLOBULIN, SERUM (07/02/2024 10:07 AM EDT) BETA 2 MICROGLOBULIN, SERUM 2.2 0.6 - 2.4 mg/L 07/04/2024 4:36 PM EDT [facility] Comment: Siemens Immulite 2000 Immunochemiluminometric assay (ICMA) Values obtained with different assay methods or kits cannot be used interchangeably. Results cannot be interpreted as absolute evidence of the presence or absence of malignant disease. Performed at: [address] [id number] Bulb Sorter: Garcia Barbosa MD, Phone: [phone] Other Topography unknown / Unknown 07/02/2024 10:07 AM EDT 07/02/2024 10:07 AM EDT Jessika Perry MD [facility] Final Result Performing Organization Address [facility] Phone Number [address] [place] [address], [place] * (ABNORMAL) FREE K+L LT CHAINS, QN, S (07/02/2024 10:07 AM EDT) FREE KAPPA LIGHT CHAINS, S 30.3(H) 3.3 - 19.4 mg/L 07/03/2024 6:08 PM EDT [facility] FREE LAMBDA LIGHT CHAINS, S 19.0 5.7 - 26.3 mg/L 07/03/2024 6:08 PM EDT [facility] KAPPA/LAMBDA RATIO, S 1.59 0.26 - 1.65 07/03/2024 6:08 PM EDT [facility] Comment: Performed at: [facility] [address] [id number] Bulb Sorter: Dimas Shetty PhD, Phone: [phone] Other Topography unknown / Unknown 07/02/2024 10:07 AM EDT 07/02/2024 10:07 AM EDT Jessika Perry MD LAB BLOOD ORDERABLES Final Resul t Performing Organization Address [facility] Co de Phone Number [place] [phone], [place] * (ABNORMAL) IMMUNOFIXATION,SERUM ([facility]) (07/02/2024 10:07 AM EDT) IMMUNOFIXATION, SERUM Comment(A A) . 07/06/2024 2:36 PM EDT [facility] Comment: Immunofixation shows IgM monoclonal protein with lambda light chain specificity. IMMUNOGLOBULIN G 1,123 586 - 1,602 mg/dL 07/06/2024 2:36 PM EDT [facility] IMMUNOGLOBULIN A, SERUM 194 87 - 352 mg/dL 07/06/2024 2:36 PM EDT [facility] IMMUNOGLOBULIN M, SERUM 217 26 - 217 mg/dL 07/06/2024 2:36 PM EDT [facility] Comment: Performed at: - [facility] [address], [place], [place] [id number] Bulb Sorter: Dimas Shetty PhD, Phone: [phone] Other Topography unknown / Unknown 07/02/2024 10:07 AM EDT 07/02/2024 10:07 AM EDT us Jessika Perry MD LAB BLOOD ORDERABLES Final Resul t [facility] [address] [place] [address], [place] * (ABNORMAL) CBC auto differential (07/02/2024 10:07 AM EDT) WBC 5.3 3.8 - 11.6 10*3/uL 07/02/2024 11:07 AM EDT [facility] UNCORRECTED WHITE BLOOD COUNT 5.3 3.8 - 11.6 10*3/uL 07/02/2024 11:07 AM EDT [facility] RBC 5.07(H) 3.60 - 5.00 10*6/uL 07/02/2024 11:07 AM EDT [facility] HEMOGLOBIN 15.5(H) 11.8 - 15.4 g/dL 07/02/2024 11:07 AM EDT [facility] HEMATOCRIT 46.4 34.0 - 46.4 % 07/02/2024 11:07 AM EDT [facility] MCV 91.4 80 - 100 fL 07/02/2024 11:07 AM EDT [facility] MCH 30.7 24.7 - 34.3 pg 07/02/2024 11:07 AM EDT [facility] MCHC 33.5 32.0 - 35.0 g/dL 07/02/2024 11:07 AM EDT [facility] RED CELL DISTRIBUTION WIDTH, RDW 13.6 11.9 - 15.3 % 07/02/2024 11:07 AM EDT [facility] PLATELET COUNT 204 150 - 450 10*3/uL 07/02/2024 11:07 AM EDT [facility] MEAN PLATELET VOLUME, MPV 8.2 6.3 - 10.7 fL 07/02/2024 11:07 AM EDT [facility] NEUTROPHILS, % 67.7 . % 07/02/2024 11:07 AM EDT [facility] LYMPHOCYTES, % 23.8 . % 07/02/2024 11:07 AM EDT [facility] MONOCYTE/MACROPHA GE, % 6.8 . % 07/02/2024 11:07 AM EDT [facility] EOSINOPHILS, % 1.1 . % 07/02/2024 11:07 AM EDT [facility] BASOPHILS, % 0.6 . % 07/02/2024 11:07 AM EDT [facility] NRBC 0.2 0 - 0.5 /100{WBC} 07/02/2024 11:07 AM EDT [facility] NEUTROPHILS 3.6 1.8 - 7.7 10*3/uL 07/02/2024 11:07 AM EDT [facility] LYMPHOCYTES 1.3 1.00 - 4.8 10*3/uL 07/02/2024 11:07 AM EDT [facility] MONOCYTES 0.4 0.0 - 0.8 10*3/uL 07/02/2024 11:07 AM EDT [facility] EOSINOPHILS 0.1 0.0 - 0.45 10*3/uL 07/02/2024 11:07 AM EDT [facility] BASOPHILS 0.0 0.0 - 0.2 10*3/uL 07/02/2024 11:07 AM EDT [facility] Blood (Blood) 07/02/2024 10: 07 AM EDT 07/02/2024 10:07 AM EDT us Jessika Perry MD LAB BLOOD ORDERABLES Final Resul t [facility] [address] [place] [address], [facility] [address] [place] [address] * (ABNORMAL) Protein electrophoresis, serum (07/02/2024 10:07 AM EDT) TOTAL PROTEIN, SERUM 7.0 6.0 - 8.5 g/dL 07/03/2024 2:36 PM EDT [facility] ALBUMIN, SERUM 3.4 2.9 - 4.4 g/dL 07/03/2024 2:36 PM EDT [facility] [id number] 0.3 0.0 - 0.4 g/dL 07/03/2024 2:36 PM EDT [facility] [id number] 0.9 0.4 - 1.0 g/dL 07/03/2024 2:36 PM EDT [facility] BETA GLOBULIN 1.1 0.7 - 1.3 g/dL 07/03/2024 2:36 PM EDT [facility] GAMMA GLOBULIN 1.2 0.4 - 1.8 g/dL 07/03/2024 2:36 PM EDT [facility] M-SPIKE 0.3(H) Not Observed g/dL 07/03/2024 2:36 PM EDT [facility] GLOBULIN, TOTAL 3.6 2.2 - 3.9 g/dL 07/03/2024 2:36 PM EDT [facility] A/G RATIO 0.9 0.7 - 1.7 07/03/2024 2:36 PM EDT [facility] SPE-NOTE Comment . 07/03/2024 2:36 PM EDT [facility] Comment: Protein electrophoresis scan will follow via computer, mail, or cake icer delivery. Performed at: [address] [id number] Bulb Sorter: Dimas Shetty PhD, Phone: [phone] Other Topography unknown / Unknown 07/02/2024 10:07 AM EDT 07/02/2024 10:07 AM EDT us Jessika Perry MD LAB BLOOD ORDERABLES Final Resul t [facility] [address] [place] [address], * (ABNORMAL) Comprehensive metabolic panel (07/02/2024 10:07 AM EDT) Glucose 112(H) 70 - 100 mg/dL 07/02/2024 11:28 AM EDT [facility] Comment: Random Glucose Reference Range is dependent on time and content of last meal. Glucose of more than 200 mg/dL in a nonstressed, ambulatory subject supports the diagnosis of Diabetes Mellitus. ADA recommended reference range BUN 15 7 - 25 mg/dL 07/02/2024 11:28 AM T [facility] CREATININE 0.98 0.60 - 1.20 mg/dL 07/02[facility]2024 11:[facility] ESTIM[facility] GFR >60.0 mL/Min 07/02/2024 11:28 AM [facility] Sodium 140 136 - 145 mmol/L 07/02/2024 11:28 AM [facility] Potassium, Bld 4.5 3.5 - 5.1 mmol/L 07/02/2024 11:28 AM [facility] Chloride 102 98 - 107 mmol/L 07/02/2024 11:28 AM [facility] Carbon Dioxide 30.4 21.0 - 31.0 mmol/L 07/02/2024 11:28 AM [facility] Anion Gap 12.1 6.0 - 15.0 meq/L 07/02/2024 11:28 AM [facility] Calcium 9.6 8.6 - 10.3 mg/dL 07/02/2024 11:28 AM [facility] TOTAL PROTEIN 7.1 6.4 - 8.9 g/dL 07/02/2024 11:28 AM [facility] ALBUMIN LEVEL 4.1 3.5 - 5.7 g/dL 07/02/2024 11:28 AM [facility] GLOBULIN 3.0 g/dL 07/02/2024 11:28 AM [facility] ALBUMIN/GLOBULIN RATIO 1.4 07/02/2024 11:28 AM [facility] BILIRUBIN,TOTAL 1.2(H) 0.3 - 1.0 mg/dL 07/02/2024 11:28 AM [facility] ASPARTATE AMINO TRANSFERASE 316(H) 13 - 39 U/L 07/02/2024 11:[facility] ALANINE AMINOTRANSFERASE 273(H) 7 - 52 U/L 07/02/2024 11:28 AM EDT [facility] ALKALINE PHOSPHATASE 117(H) 34 - 104 U/L 07/02/2024 11:28 AM EDT [facility] CREATININE [facility] 72.86 07/02/2024 11:28 AM EDT [facility] Other Topography unknown / Unknown 07/02/2024 10:07 AM EDT 07/02/2024 10:07 AM EDT Jessika Perry MD LAB BLOOD ORDERABLES Final Resul t [facility] [address] [place] [address], [facility] [address] [place] [address] from Last 3 Months Insurance Care Teams Armor Officer Relationship Specialty Start Date End Date Julia Casas MD [address] [place] [address] PCP - General Family Medicine 07/22/24 Joe Greene MD Referring Physician Neurology 02/10/24 Aurora Falcon PA [address] [place] [address] Physician Relief Man Neurology 05/20/24
--- OUTSIDE RECORDS SUMMARY | 2024-08-04 10:14 | XMS_ITS | Encounter Summary ---
Author Organization [facility] Address [address] [place] [address] Care Team Providers Care Ccu Nurse Name Role Phone Julia Casas MD Primary Care Provider [phone] Joe Greene MD Unavailable Unavailable Aurora Falcon Unavailable Julia Casas MD Primary Care Provider [phone] Encounter Details Date Type Department Care Team (Late st Contact Info) Description 01/13/2024 External Result Encounter [facility] [address] [place] [phone] Rhona Diaz, GROMMET WORKER [address] [facility] , [address] [address] Social History Tobacco Use Types Packs/Day Years [...] Procedure Name Priority Date/Time Associated Diagnosis Comments MR LUMBAR SPINE WO CONTRAST 01/14/2024 9:43 AM EST MR CERVICAL SPINE WO CONTRAST 01/13/2024 12:25 PM EST documented in this encounter Results * MR lumbar spine wo contrast (01/14/2024 9:43 AM EST) Anatomical Region Laterality Modality Spine, L-spine Magnetic Resonan ce 01/14/2024 9:43 AM EST Narrative 01/14/2024 9:41 AM EST THIS EXAM WAS PERFORMED AT [facility] LUMBAR SPINE WO CONT CLINICAL INFORMATION: Chronic [...] Howard Ahmadi DO on 01/14/2024 8:59 AM Bryon Valdes have personally reviewed the image(s) and agree with and/or edited the report Finalized by Bryon Murguia on 01/14/2024 9:41 AM The copy-to physician of this order is JULIA Neely Procedure Note Radiology, Radiologist, MD - 01/14/2024 THIS EXAM WAS PERFORMED AT [facility] LUMBAR SPINE WO CONT CLINICAL INFORMATION: Chronic back pain, weakness, falls, ataxia,neuropathy COMPARISON: None PROCEDURE: Routine lumbosacral spine protocol MRI was obtained withoutcontrast material. Multisequence, multiplanar imaging was obtained. FINDINGS: Vertebral body heights and alignment are maintained. Minimal intervertebral disc space narrowing and mild degenerative endplatechanges (Modic type II), not significantly disproportionate for age. No significant marrow signal abnormality. Conus medullaris terminates at the level of on L2. No distal cord signalabnormality. Cauda equina nerve roots are broadly unremarkable. L1-L2: No significant spinal canal or neural foraminal narrowing. L2-L3: Mild diffuse disc bulge, minimal facet arthropathy withoutsignificant spinal canal or neuroforaminal stenosis. L3-L4: Mild diffuse disc bulge without significant spinal canal orneuroforaminal stenosis. L4-L5: Mild diffuse disc bulge, left facet arthropathy without significantspinal canal stenosis. Minimal left neuroforaminal stenosis. L5-S1: Mild spinal canal stenosis from epidural fat. No significantneuroforaminal stenosis. IMPRESSION: * Minimal degenerative spondylosis, with left L4-L5 facet arthropathy. * No significant spinal canal or neuroforaminal stenosis. Approved by Resident Howard Ahmadi DO on 01/14/2024 8:59 AM Bryon Valdes have personally reviewed the image(s) and agreewith and/or edited the report Finalized by Bryon Murguia on 01/14/2024 9:41 AM The copy-to physician of this order is JULIA Neely Rhona Diaz NP IMG MRI PROCEDURES Final Result * MR cervical spine wo contrast (01/13/2024 12:25 PM EST) Anatomical Region Laterality Modality Spine, C-spine Magnetic Resonan ce 01/13/2024 12:2 5 PM EST Narrative 01/13/2024 12:24 PM EST THIS EXAM WAS PERFORMED AT [facility] EXAM: MRI CERVICAL SPINE WITHOUT CONTRAST CLINICAL [...] Osman Younger MD on 01/13/2024 12:24 PM The copy-to physician of this order is JULIA Neely Procedure Note Radiology, Radiologist, - 01/13/2024 THIS EXAM WAS PERFORMED AT [facility] EXAM: MRI CERVICAL SPINE WITHOUT CONTRAST CLINICAL HISTORY: TECHNIQUE: Routine unenhanced MRI of the cervical spine was obtained. COMPARISONS: None. FINDINGS: There is slight straightening of the normal lordotic curvature of thecervical spine. There is chronic very minimal degenerative retrolisthesisof C5 on C6. There is no significant loss of the vertebral body heights.There is localized moderate loss of the C4-5, C5-6, and C6-7 disc spaceheight with localized mild degenerative endplate irregularity. There are no discreteworrisome bone marrow signal abnormalities. The craniocervical junction iswithin normal limits. There are no signal abnormalities of the visualizedcervical spinal cord. Individual disc space levels: C2-C3: The disc is unremarkable. C3-C4: The disc is unremarkable. C4-C5: There is a disc bulge with focal moderately severe narrowing of theright neural foramen for the exiting C5 nerve root. C5-C6: There is a minimal disc bulge flattening thecal sac. There is mildnarrowing of the right neural foramen. C6-C7: There is a minimal disc bulge flattening thecal sac. C7-T1: The disc is unremarkable. IMPRESSION: 1. Chronic degenerative disc disease from C4-C5 to C6-C7, as detailedabove. There is focal moderately severe narrowing of the right C4-5neural foramen for the exiting C5 nerve root. There is no evidence forspinal canal stenosis. Finalized by Osman Younger MD on 01/13/2024 12:24 PM The copy-to physician of this order is JULIA Neely Rhona Diaz GROMMET WORKER IMG MRI PROCEDURES Final Result documented in this encounter Visit Diagnoses Not on filedocumented in this encounter Care Teams Ccu Nurse Relationship Specialty Start Date End Date Julia Casas MD PCP - General Family Medicine 11/05/23 07/21/24 Julia Casas MD [address] [place] [phone] PCP - General Family Medicine 07/22/24 Joe Greene MD Referring Physician Neurology 02/10/24 Aurora Falcon PA [address] [facility] [place] [address] Physician Consulting Technical Manager Neurology 05/20/24 documented as of this encounter
--- OUTSIDE RECORDS SUMMARY | 2024-08-04 10:14 | XMS_ITS | Clinical Summary ---
Author Organization [facility] tem Address [id number] [address] [place] [address] Care Team Providers Care Health And Safety Specialist Name Role Phone Ajit Jessica Serene GOODEN Primary Care Provider [phone] Social History Tobacco Use Types Packs/Day Years Used Date Smoking Tobacco: Never Assessed Childcare Answer Date Recorded Childcare Unknown 08/13/2018 Employment Answer Date Recorded Employment Unknown 08/13/2018 Comments Unknown Sex and Gender Information Value Date Recorded Sex Assigned at Not on file Legal Sex Female 12:10 PM EDT Gender Identity Not on file Sexual Orientation Not on file Plan of Treatment Health Maintenance Due Date Last Done Comments Depression Screening 1969 Tobacco Screening 1969 Adult BMI Screening 09/28/1975 DTaP,Tdap and Td Vaccines (1 - Tdap) 1976 Zoster (Shingles) Vaccine (1 of 2) 09/28/2007 Fall Risk Screening 2022 COVID-19 Vaccine (5 - 2023-2 5 season) 2023 01/15/2022, 02/02/2021, 06/07/2020, Additional history exists Influenza Vaccine 11/02/2024 12/29/2021, , 12/01/2019 Medical Devices Not on file Insurance [employer] MED[employer]ARE Care Teams Health And Safety Specialist Relationship Specialty Start Date End Date Jessica Fong PA-C [address] [place] [phone] PCP - General Physician Milling Machine Set Up Operator 01/08/24
[2024-08-04 11:21] LABS: Magnesium 1.8 mg/dL (1.8-2.4); Thyroid Stimulating Hormone 5.196 uIU/mL (0.358-3.740)
[2024-08-04 12:09] LABS: Free T4 1.41 ng/dL (0.76-1.46)
[2024-08-05 16:08] LABS: Thyroid Peroxidase (TPO) Ab 15 IU/mL (0-34)
== END 2024-08-04 10:06 | disposition home or self-care (01) ==
LOC: LAB 10:08
PROVIDERS: PCP Family Medicine; Visit Provider Family Medicine
DX: E03.9 Hypothyroidism, unspecified (principal); R53.82 Chronic fatigue, unspecified; R25.2 Cramp and spasm
CPT/HCPCS: 36415; 83735; 84439; 84443; 86376; 86800

== ENCOUNTER 2024-08-14 15:53 | Outpatient (OUT) | payer MEDICARE, SELFPAY ==
--- NOTE | 2024-08-14 16:15 | MM_ITS ---
Patient Name: OLINDA ARMSTRONG MR#: [id number] : 1955 Exam Date: 08/14/2024 Ordering Doctor: DR JESSI MELTON M.D. RADIOLOGY REPORT PROCEDURE: MM TOMOSYNTHESIS SCREENING BI COMPARISON: MG MAMM CHRISTA SCRN W CAD DIG, 07/05/2015. INDICATIONS: Screening Calculator Name NCI Breast Cancer Risk Assessment Tool 5 Year Breast Cancer Risk 1.70% Lifetime Breast Cancer Risk 6.10% Personal Breast Cancer No Personal Ovarian Cancer No Treatments None Family Cancers Mother with lung cancer at age 80; Aunt-maternal with breast cancer at age 40. LOCATION: [facility] BREAST COMPOSITION: The breasts are heterogeneously dense,which may obscure small masses. FINDINGS: DIAGNOSTIC CATEGORY 1--NEGATIVE. RIGHT BREAST: No significant suspicious finding. LEFT BREAST: No significant suspicious finding. RECOMMENDATIONS: ROUTINE MAMMOGRAM AND CLINICAL EVALUATION IN 12 MONTHS. PLEASE NOTE: A NORMAL MAMMOGRAM DOES NOT EXCLUDE THE POSSIBILITY OF BREAST CANCER. A CLINICALLY SUSPICIOUS PALPABLE LUMP SHOULD BE BIOPSIED. Dictated by: Nate Graham DO on 08/17/2024 at 15:35 Approved by: Nate Graham DO on 08/17/2024 at 15:36
== END 2024-08-14 15:54 | disposition home or self-care (01) ==
LOC: MAMMO 15:53
PROVIDERS: PCP Family Medicine; Visit Provider Family Medicine
DX: Z12.31 Encounter for screening mammogram for malignant neoplasm of breast (principal); Z80.3 Family history of malignant neoplasm of breast; Z80.1 Family history of malignant neoplasm of trachea, bronchus and lung
CPT/HCPCS: 77063; 77067